=== PATIENT | female | born 1980 | race Caucasian/White ===

== ENCOUNTER 2017-10-05 18:46 | Inpatient (IN) | payer OTHER ==
[~2017-10-05] VITALS: Ht 154.9 cm; Wt 68.6 kg
[~2017-10-05 18:46] MED LIST: FERR324T6 PO; PRENAT PO
[2017-10-05] MEDS ORDERED: SODIUM CHLORIDE 0.9% 1L BAG IV* STA (19:23)
[2017-10-05] MEDS ORDERED: PIPER-TAZO 3.375 GM IV (PMX) 50 ML IVPB STA (19:23)
[2017-10-05] MEDS ORDERED: DOXYCYCLINE 100 MG in SOD CHLORIDE 0.9% 250 ML IVPB SCH (19:30)
[2017-10-05 19:48] LABS: BASOPHILS % 0.2 % (0.0-2.0); EOSINOPHILS % 0.1 % (0.0-7.0); HEMATOCRIT 34.1 % (37.0-47.0); HEMOGLOBIN 10.8 g/dl (12.0-16.0); LYMPHOCYTES # 0.8 10^3/ul (0.8-2.9); LYMPHOCYTES % 6.1 % (15.0-51.0); MEAN CORPUSCULAR HEMOGLOBIN 23.7 pg (29.0-33.0); MEAN CORPUSCULAR HGB CONC 31.7 g/dl (32.0-37.0); MEAN CORPUSCULAR VOLUME 74.8 fl (82.0-101.0); MEAN PLATELET VOLUME 9.4 fl (7.4-10.4); MONOCYTE # 0.4 10^3/ul (0.3-0.9); MONOCYTES % 3.2 % (0.0-11.0); NEUTROPHIL # 11.4 10^3/ul (1.6-7.5); PLATELET COUNT 381 10^3/UL (140-415); RED BLOOD COUNT 4.56 10^6/ul (4.20-5.40); RED CELL DISTRIBUTION WIDTH 16.5 % (11.5-14.5); WHITE BLOOD COUNT 12.6 10^3/ul (4.8-10.8)
[2017-10-05] MEDS ORDERED: HYDROmorphONE 0.5 MG/0.5 ML SYG IV STA (19:56)
[2017-10-05] MEDS ORDERED: ONDANSETRON 4 MG INJ IV STA (19:56)
[2017-10-05 20:06] LABS: ALBUMIN 3.8 g/dl (3.3-4.9); ALBUMIN/GLOBULIN RATIO 1.05; BILIRUBIN,INDIRECT 0.7 mg/dl (0-1.1); BILIRUBIN,TOTAL 0.7 mg/dl (0.2-1.3); CREATININE 0.69 mg/dl (0.44-1.00); TOTAL PROTEIN 7.4 g/dl (6.1-8.1)
[2017-10-05 20:13] LABS: ADD UMIC YES; UR ASCORBIC ACID NEGATIVE (NEGATIVE); UR BILIRUBIN (Dip) NEGATIVE (NEGATIVE); UR BLOOD (Dip) NEGATIVE (NEGATIVE); UR CLARITY CLEAR (CLEAR); UR COLOR AMBER (YELLOW); UR GLUCOSE (Dip) NEGATIVE (NEGATIVE); UR KETONES (Dip) NEGATIVE (NEGATIVE); UR LEUKOCYTE ESTERASE (Dip) 1+ Leu/ul (NEGATIVE); UR MUCUS MANY /HPF (NONE SEEN); UR NITRITE (Dip) NEGATIVE (NEGATIVE); UR RBC 2 /HPF (0-5); UR SPECIFIC GRAVITY (Dip) 1.028 (1.003-1.030); UR TOTAL PROTEIN (Dip) 1+ mg/dl (NEGATIVE); UR UROBILINOGEN (Dip) 1+ mg/dL (NEGATIVE)
--- NOTE | 2017-10-05 20:32 | RADRPT ---
PROCEDURE: Pelvic ultrasound. CLINICAL INDICATION: Pelvic pain, recent spontaneous TECHNIQUE: English scale, color doppler, spectral doppler ultrasound of the pelvis was performed with transabdominal and transvaginal transducers. COMPARISON: US OB 08/02/2015 FINDINGS: Uterus: Position: Anteverted. Normal myometrial echogenicity. Normal appearance of the endometrium. Ovaries: Normal appearing right ovary. Normal appearing left ovary. No adnexal masses. Free fluid: Mild - moderate amount of complex fluid is present. Measurements: Endometrium (cm): 0.5 Uterus (cm): 9.6 x 5.4 x 6.7 Right ovary (cm): 2.2 x 1.4 x 1.7 Left ovary (cm): 2.1 x 1.2 x 1.4 IMPRESSION: Normal appearance of the uterus, endometrium, and both ovaries. Mild - moderate complex free fluid in the pelvis. RPTAT: AADD .Daniel Jarrett MD, MD Date Time Electronically viewed and signed by .Daniel Jarrett MD, on 10/05/2017 20:32 .B/
[2017-10-05] MEDS ORDERED: ONDANSETRON 4 MG INJ IV PRN (22:30)
[2017-10-05] MEDS ORDERED: ACETAMINOPHEN 325 MG TAB PO PRN (22:30)
--- NOTE | 2017-10-05 22:55 | ERD ---
ER Documentation Chief Complaint Chief Complaint BIBA [id number],vag bleed,,hx miscarriage 09/26/17,c/o lower abd pain HPI 37-year-old homeless female SAb1 presenting to the ER complaining of suprapubic pain and vaginal bleeding. She states that her last menstrual period was August 17. She was a few weeks and went to [facility] on September 26 for vaginal bleeding and abdominal cramping. She was told she was having a miscarriage. She was sent home and told to follow-up. Her abdominal pain resolved but her bleeding never resolved. Yesterday night she started feeling abdominal cramping again with vaginal bleeding she is using about 3 pads a day. She denies any associated fevers. Her pain is constant, 10 out of 10, worse with any type of movement. She denies any nausea, vomiting , diarrhea, chest pain. ROS All systems reviewed and are negative except as per history of present illness. Medications Home Meds Discontinued Reported Medications Ferrous Sulfate (Ferrous Sulfate) 324 Mg Tabsr, 324 MG PO 07/28/15 Multivit/Min/Fol Ac/Iron/Pren* ( S*) 1 Tab Tab, 1 TAB PO DAILY, TAB 07/28/15 Allergies Allergies: Coded Allergies: No Known Allergy (Unverified , 10/05/17) PMhx/Soc History of Surgery: Yes () Anesthesia Reaction: No Hx Respiratory Disorders: No Hx Cardiac Disorders: No Hx Psychiatric Problems: No Hx Alcohol Use: No Hx Substance Use: No Hx Tobacco Use: No Smoking Status: Current some day smoker FmHx Family History: No diabetes Physical Exam Vitals Vital Signs Date Time Temp Pulse Resp B/P Pulse Ox O2 Delivery O2 Flow Rate FiO2 10/05/17 22:57 94 18 107/57 99 Room Air 10/05/17 22:19 96 18 115/54 100 Room Air 10/05/17 21:22 96 16 107/58 98 Room Air 10/05/17 20:09 94 18 113/55 99 10/05/17 18:52 98.6 111 18 110/55 100 Physical Exam Const: Nontoxic, in distress secondary to pain, writhing around in bed, sickly appearing Head: Atraumatic Eyes: Normal Conjunctiva ENT: Dry oral mucosa Neck: Full range of motion..~ No meningismus. Resp: Clear to auscultation bilaterally Cardio: Tachycardic with regular rhythm, no murmurs Abd: Soft, non distended, significant suprapubic tenderness with no palpable uterus. Normal bowel sounds Skin: No petechiae or rashes Back: No midline or flank tenderness Pelvic Exam: Oil Burner present Abdomen: Tender in the lower abdomen External Genitalia: Normal Speculum: Bloody purulent discharge in the vaginal vault. Unable to visualize cervix. Bimanual: Positive CMT, no masses, positive uterine tenderness. Unable to palpate cervical os Ext: No cyanosis, or edema Neur: Awake and alert Psych: Normal Mood and Affect Result Diagram: 10/05/17192410/05/171924 Results 24 hrs Laboratory Tests Test 10/05/17 19:25 10/05/17 19:53 10/05/17 22:21 White Blood Count 12.610^3/ul Red Blood Count 4.5610^6/ul Hemoglobin 10.8g/dl Hematocrit 34.1% Mean Corpuscular Volume 74.8fl Mean Corpuscular Hemoglobin 23.7pg Mean Corpuscular Hemoglobin Concent 31.7g/dl Red Cell Distribution Width 16.5% Platelet Count 54924^3/UL Mean Platelet Volume 9.4fl Neutrophils % 90.0% Lymphocytes % 6.1% Monocytes % 3.2% Eosinophils % 0.1% Basophils % 0.2% Nucleated Red Blood Cells % 0.0/100WBC Neutrophils # 11.410^3/ul Lymphocytes # 0.810^3/ul Monocytes # 0.410^3/ul Eosinophils # 0.010^3/ul Basophils # 0.010^3/ul Nucleated Red Blood Cells # 0.010^3/ul Sodium Level 134mmol/L Potassium Level 4.0mmol/L Chloride Level 96mmol/L Carbon Dioxide Level 28mmol/L Anion Gap 14 Blood Urea Nitrogen 14mg/dl Creatinine 0.69mg/dl Glucose Level 127mg/dl Lactic Acid Level 1.0mmol/L 0.9mmol/L Calcium Level 9.0mg/dl Total Bilirubin 0.7mg/dl Direct Bilirubin 0.00mg/dl Indirect Bilirubin 0.7mg/dl Aspartate Amino Transf (AST/SGOT) 21IU/L Alanine Aminotransferase (ALT/SGPT) 33IU/L Alkaline Phosphatase 102IU/L Total Protein 7.4g/dl Albumin 3.8g/dl Globulin 3.60g/dl Albumin/Globulin Ratio 1.05 Serum HCG, Qualitative POSITIVE Beta HCG, Quantitative 78.6mIU/ml Urine Color ALEC Urine Clarity CLEAR Urine pH 5.0 Urine Specific [place] 1.028 Urine Ketones NEGATIVEmg/dL Urine Nitrite NEGATIVEmg/dL Urine Bilirubin NEGATIVEmg/dL Urine Urobilinogen 1+mg/dL Urine Leukocyte Esterase 1+Dax/ul Urine Microscopic RBC 2/HPF Urine Microscopic WBC 9/HPF Urine Mucus MANY/HPF Urine Hemoglobin NEGATIVEmg/dL Urine Glucose NEGATIVEmg/dL Urine Total Protein 1+mg/dl Current Medications Medications (Trade) Dose Ordered Sig/Milagros Route PRN Reason Start Time Stop Time Status Last Admin Dose Admin Sodium Chloride 2110 ml 2,110 ml BOLUS OVER 2 HOURS STAT IV* 10/05/17 19:23 10/05/17 19:29 DC 10/05/17 19:38 Piperacillin Sod/ Tazobactam Sod 50 ml @ 100 mls/hr ONCE STAT IVPB 10/05/17 19:23 10/05/17 19:52 DC 10/05/17 19:52 Doxycycline Hyclate/Sodium Chloride (Vibramycin/NS) 250 ml @ 250 mls/hr ONCE IVPB 10/05/17 19:30 10/05/17 19:30 Hydromorphone HCl (Dilaudid) 0.5 mg ONCE STAT IV 10/05/17 19:56 10/05/17 19:58 DC 10/05/17 20:04 Ondansetron HCl (Zofran Inj) 4 mg ONCE STAT IV 10/05/17 19:56 10/05/17 19:58 DC 10/05/17 20:04 Ondansetron HCl (Zofran Inj) 4 mg BRIDGE ORDER PRN IV NAUSEA AND/OR VOMITING 10/05/17 22:30 10/06/17 22:29 Acetaminophen (Tylenol Tab) 650 mg ER BRIDGE PRN PO MILD PAIN/FEVER 10/05/17 22:30 10/06/17 22:29 Procedures/MDM Labs: CBC: leukocytosis with left shift, mild anemia CMP: No evidence of electrolyte abnormality, renal failure, hypoglycemia, liver failure, or biliary obstruction Lactate within normal limits UA: 1+ leukoesterase Imaging: Pelvic ultrasound: IMPRESSION: Normal appearance of the uterus, endometrium, and both ovaries. Mild - moderate complex free fluid in the pelvis. .Daniel Jarrett MD, MD Date Time Electronically viewed and signed by .Daniel Jarrett MD, on 10/05/2017 20:32 MDM Patient is presenting with clinical picture consistent with endometritis/pelvic infection. Sepsis workup was initiated. There is no evidence of septic shock or severe sepsis. Broad-spectrum antibiotics were given. At 30 cc/kg fluid bolus was also given. Pain medications were administered with improvement of her pain. I contacted the hospice music therapy on-call, Dr. Pino, who came to see the patient and examined her herself. She agrees that the patient needs admission for IV antibiotics. At this time there is no signs of ectopic or uterine perforation. The ultrasound did show evidence of free fluid. Dr. Pino is aware of this. She does not think the patient needs to go to the OR at this time. She will admit to her service. Departure Diagnosis: Primary Impression: Endometritis following abortive Additional Impression: Sepsis Sepsis type: sepsis due to unspecified organism Qualified Code: A41.9 - Sepsis, due to unspecified organism Condition: Serious ANDREAS ALVARADO MD Oct 05, 2017 22:55
[2017-10-05 23:55] VITALS: BP 114/55; PULSE 96; RESP 18
[2017-10-06] MEDS: HYDROmorphONE 0.5 MG/0.5 ML SYG IV PRN ×6 (00:10→23:57)
[2017-10-06 00:54] VITALS: BP 109/65; RESP 20
[2017-10-06] MEDS: PIPER-TAZO 3.375 GM IV (PMX) 50 ML IVPB SCH ×5 (02:09→23:57)
--- NOTE | 2017-10-06 02:27 | CONS ---
Date/Time of Note Date/Time of Note DATE: 10/06/17 TIME: 01:44 Assessment/Plan Assessment/Plan Additional Assessment/Plan s/p miscarriage early , PID less likely pelvic pain , vaginal bleeding, cannot exclude ectopic plan get medical record from [facility] keep NPO review u/s radiologist in am Consultation Date/Type/Reason Admit Date/Time Oct 05, 2017 at 22:32 Date of Consultation: Oct 06, 2017 Reason for Consultation pelvic pain vaginal bleeding Referring Provider: ANDREAS ALVARADO MD Hx of Present Illness 37y.o (sab3 iab) presented to ER with c/o pelvic pain and vaginal bleeding for the last 2days. her LMP was 08/17 and found to be ,but she started having lower abdominal cramping pain with vaginal bleeding which led her to visit [facility] where she was told having miscarriageand sent home on september 26/2017 presently no medical record available whether they confirmed IUP or not at that time . according to patient symptoms alleviated for few days and restarted pelvic pain and vaginal bleeding which is heavy. pain is aggrevated with motion even radiated to upper abdomen.denies any other subjective symptoms., U/s today revealed no abnormal finding except mild to moderate free fluid in the culde sac which is complex,poss blood/abscess HCG 76, cannot exclude ectopic prenancy even though [facility] told her she was miscarring . patient was admitted for observation ,review the u/s film with radiologist in am ,keep patient NPO,and repeat lab all within nl except above mentioned in HPI Constitutional: improved, no complaints Eyes: no complaints ENT: no complaints Respiratory: no complaints Cardiovascular: no complaints Gastrointestinal: no complaints, pain Genitourinary: bleeding Musculoskeletal: no complaints Skin: no complaints Neurologic: no complaints Endocrine: polyuria Lymphatic: no complaints Psychological: no complaints Immunologic: no complaints Past Medical History Medical History: no pertinent history Past Surgical History had x4 C/S x3 SAB x1IAB Past Surgical Hx: other (c/s IAB) Family History Significant Family History: hypertension (m om and dad) Social History Alcohol Use: other Smoking Status: Current some day smoker Drug Use: other (unable to retrieve info) Exam/Review of Systems Vital Signs Vitals Vital Signs Date Time Temp Pulse Resp B/P Pulse Ox O2 Delivery O2 Flow Rate FiO2 10/06/17 00:54 98.6 95 20 109/65 97 10/05/17 22:57 Room Air Intake and Output 10/05/17 10/05/17 10/06/17 15:00 23:00 07:00 Intake Total 2460 ml Balance 2460 ml Exam Constitutional: alert, oriented, well developed Psych: no complaints Head: normocephalic Eyes: nl conjunctiva ENMT: nl external ears & nose Neck: supple Respiratory: clear to auscultation Cardiovascular: regular rate and rhythm Gastrointestinal: rebound or guarding, surgical scars, tender (on lower abdomen ) Genitourinary - Female: uterus (u/s neg) Musculoskeletal: nl extremities to inspection, nl gait and stance Extremities: normal pulses Neurological: BOX PRINTER II-XII intact, nl mental status, nl speech, nl strength Results Result Diagram: 10/05/17192410/05/171924 Results 24 hrs Laboratory Tests Test 10/05/17 19:25 10/05/17 19:53 10/05/17 22:21 White Blood Count 12.6 #H Red Blood Count 4.56 Hemoglobin 10.8 L Hematocrit 34.1 L Mean Corpuscular Volume 74.8 L Mean Corpuscular Hemoglobin 23.7 L Mean Corpuscular Hemoglobin Concent 31.7 L Red Cell Distribution Width 16.5 H Platelet Count 381 Mean Platelet Volume 9.4 Neutrophils % 90.0 H Lymphocytes % 6.1 L Monocytes % 3.2 Eosinophils % 0.1 Basophils % 0.2 Nucleated Red Blood Cells % 0.0 Neutrophils # 11.4 H Lymphocytes # 0.8 Monocytes # 0.4 Eosinophils # 0.0 Basophils # 0.0 Nucleated Red Blood Cells # 0.0 Sodium Level 134 L Potassium Level 4.0 Chloride Level 96 L Carbon Dioxide Level 28 Anion Gap 14 Blood Urea Nitrogen 14 Creatinine 0.69 Glucose Level 127 Lactic Acid Level 1.0 0.9 Calcium Level 9.0 Total Bilirubin 0.7 Direct Bilirubin 0.00 Indirect Bilirubin 0.7 Aspartate Amino Transf (AST/SGOT) 21 Alanine Aminotransferase (ALT/SGPT) 33 Alkaline Phosphatase 102 Total Protein 7.4 Albumin 3.8 Globulin 3.60 H Albumin/Globulin Ratio 1.05 Serum HCG, Qualitative POSITIVE Beta HCG, Quantitative 78.6 Urine Color ALEC Urine Clarity CLEAR Urine pH 5.0 Urine Specific [place] 1.028 Urine Ketones NEGATIVE Urine Nitrite NEGATIVE Urine Bilirubin NEGATIVE Urine Urobilinogen 1+ H Urine Leukocyte Esterase 1+ H Urine Microscopic RBC 2 Urine Microscopic WBC 9 H Urine Mucus MANY A Urine Hemoglobin NEGATIVE Urine Glucose NEGATIVE Urine Total Protein 1+ H Medications Medications Current Medications Doxycycline Hyclate/Sodium Chloride (Vibramycin/NS) 250 ml @ 250 mls/hr ONCE IVPB Last administered on 10/05/17 19:30; Admin Dose 250 MLS/HR; Start 10/05 at 19:30 Hydromorphone HCl 0.5 mg 0.5 mg Q2H PRN IV PAIN Last administered on 00:10; Admin Dose 0.5 MG; Start 10/06/17 at 00:00 Piperacillin Sod/ Tazobactam Sod (Zosyn 3.375gm/ 50 ml (Pmx)) 50 ml @ 100 mls/ hr Q6 IVPB ; Start 10/06/17 at 00:30 BEATA RUELAS MD Oct 06, 2017 02:11
[2017-10-06 02:34] VITALS: Ht 154.9 cm; Wt 68.6 kg
[2017-10-06] MEDS ORDERED: INFLUENZA VIRUS VACCINE 0.5 ML SYG IM* ONE (03:00)
[2017-10-06 05:45] LABS: BASOPHILS % 0.2 % (0.0-2.0); EOSINOPHILS % 0.1 % (0.0-7.0); HEMATOCRIT 33.6 % (37.0-47.0); HEMOGLOBIN 10.5 g/dl (12.0-16.0); LYMPHOCYTES # 0.9 10^3/ul (0.8-2.9); LYMPHOCYTES % 6.1 % (15.0-51.0); MEAN CORPUSCULAR HEMOGLOBIN 23.9 pg (29.0-33.0); MEAN CORPUSCULAR HGB CONC 31.3 g/dl (32.0-37.0); MEAN CORPUSCULAR VOLUME 76.4 fl (82.0-101.0); MEAN PLATELET VOLUME 10.2 fl (7.4-10.4); MONOCYTE # 0.5 10^3/ul (0.3-0.9); MONOCYTES % 3.1 % (0.0-11.0); NEUTROPHIL # 13.7 10^3/ul (1.6-7.5); NEUTROPHILS % 89.9 % (39.0-77.0); PLATELET COUNT 364 10^3/UL (140-415); RED CELL DISTRIBUTION WIDTH 16.5 % (11.5-14.5); WHITE BLOOD COUNT 15.2 10^3/ul (4.8-10.8)
[2017-10-06 07:19] VITALS: BP 109/55; RESP 20
--- NOTE | 2017-10-06 08:09 | QN ---
Documentation Comment review the imaging of u/s with DR hanye FF on culde sac measured arvin 10cc complex possibly blood clot [facility] u/s on september 26 showed IUP GS located on low seg /poss rupture of ovarian cyst? this am HCG 61 from 78.6 H&H stable BEATA RUELAS MD Oct 06, 2017 08:09
[2017-10-06] MEDS ORDERED: INFLUENZA VIRUS VACCINE 0.5 ML (DISPENSING) IM* ONE (09:00)
--- NOTE | 2017-10-06 12:08 | QN ---
Documentation Comment Patient reports pain is controlled with medication. Denies any dizziness, lightheadedness, shortness of breath, chest pain. Ambulated. Urinated. Has appetite to eat. Denies increased vaginal bleeding. general appearance: A&O, Appears to be in mild distress Abdomen: soft, mild tenderness in the lower abdomen, no rebound tenderness, no guarding, no rigidity No evidence of acute abdomen. No CVA tenderness. Extremities: no calf tenderness, no click, no edema Hematology - 72 Hrs Test 10/05/17 19:25 10/06/17 04:21 White Blood Count 12.610^3/ul (4.8-10.8) #H 15.210^3/ul (4.8-10.8) #H Red Blood Count 4.5610^6/ul (4.20-5.40) 4.4010^6/ul (4.20-5.40) Hemoglobin 10.8g/dl (12.0-16.0) L 10.5g/dl (12.0-16.0) L Hematocrit 34.1% (37.0-47.0) L 33.6% (37.0-47.0) L Mean Corpuscular Volume 74.8fl (82.0-101.0) L 76.4fl (82.0-101.0) L Mean Corpuscular Hemoglobin 23.7pg (29.0-33.0) L 23.9pg (29.0-33.0) L Mean Corpuscular Hemoglobin Concent 31.7g/dl (32.0-37.0) L 31.3g/dl (32.0-37.0) L Red Cell Distribution Width 16.5% (11.5-14.5) H 16.5% (11.5-14.5) H Platelet Count 83382^3/UL (140-415) 78139^3/UL (140-415) Mean Platelet Volume 9.4fl (7.4-10.4) 10.2fl (7.4-10.4) Neutrophils % 90.0% (39.0-77.0) H 89.9% (39.0-77.0) H Lymphocytes % 6.1% (15.0-51.0) L 6.1% (15.0-51.0) L Monocytes % 3.2% (0.0-11.0) 3.1% (0.0-11.0) Eosinophils % 0.1% (0.0-7.0) 0.1% (0.0-7.0) Basophils % 0.2% (0.0-2.0) 0.2% (0.0-2.0) Nucleated Red Blood Cells % 0.0/100WBC (0.0-0.0) 0.0/100WBC (0.0-0.0) Neutrophils # 11.410^3/ul (1.6-7.5) H 13.710^3/ul (1.6-7.5) H Lymphocytes # 0.810^3/ul (0.8-2.9) 0.910^3/ul (0.8-2.9) Monocytes # 0.410^3/ul (0.3-0.9) 0.510^3/ul (0.3-0.9) Eosinophils # 0.010^3/ul (0.0-0.5) 0.010^3/ul (0.0-0.5) Basophils # 0.010^3/ul (0.0-0.1) 0.010^3/ul (0.0-0.1) Nucleated Red Blood Cells # 0.010^3/ul (0.0-0.0) 0.010^3/ul (0.0-0.0) Erythrocyte Sedimentation Rate 27mm/Hr (0-20) H Chemistry Test 10/05/17 19:25 10/05/17 22:21 10/06/17 00:22 10/06/17 04:21 Sodium Level 134mmol/L (135-144) L Potassium Level 4.0mmol/L (3.5-5.1) Chloride Level 96mmol/L (97-110) L Carbon Dioxide Level 28mmol/L (21-31) Anion Gap 14 (8-16) Blood Urea Nitrogen 14mg/dl (7-20) Creatinine 0.69mg/dl (0.44-1.00) Glucose Level 127mg/dl (70-220) Lactic Acid Level 1.0mmol/L (0.5-2.0) 0.9mmol/L (0.5-2.0) 1.1mmol/L (0.5-2.0) Calcium Level 9.0mg/dl (8.4-10.2) Total Bilirubin 0.7mg/dl (0.2-1.3) Direct Bilirubin 0.00mg/dl (0.00-0.20) Indirect Bilirubin 0.7mg/dl (0-1.1) Aspartate Amino Transf (AST/SGOT) 21IU/L (15-46) Alanine Aminotransferase (ALT/SGPT) 33IU/L (13-69) Alkaline Phosphatase 102IU/L (42-121) Total Protein 7.4g/dl (6.1-8.1) Albumin 3.8g/dl (3.3-4.9) Globulin 3.60g/dl (1.3-3.2) H Albumin/Globulin Ratio 1.05 Serum HCG, Qualitative POSITIVE (NEGATIVE) Beta HCG, Quantitative 78.6mIU/ml 61.1mIU/ml Assessment: Lower abdominaL pain, Low HCG. history of SAB . based on review of the imaging from [facility] SAB. Small FF in the pelvis. can not r/o Hemorrhagic corpus leuteal cyst. 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
[2017-10-06 14:43] VITALS: BP 115/64; RESP 22
[2017-10-06 17:07] LABS: ADD UMIC YES; UR ASCORBIC ACID NEGATIVE (NEGATIVE); UR BILIRUBIN (Dip) NEGATIVE (NEGATIVE); UR BLOOD (Dip) 2+ mg/dL (NEGATIVE); UR CLARITY SLIGHTLY CLOUDY (CLEAR); UR COLOR AMBER (YELLOW); UR GLUCOSE (Dip) NEGATIVE (NEGATIVE); UR KETONES (Dip) NEGATIVE (NEGATIVE); UR LEUKOCYTE ESTERASE (Dip) 3+ Leu/ul (NEGATIVE); UR NITRITE (Dip) NEGATIVE (NEGATIVE); UR RBC 6 /HPF (0-5); UR SPECIFIC GRAVITY (Dip) 1.029 (1.003-1.030); UR SQUAMOUS EPITHELIAL CELL FEW /HPF (FEW); UR TOTAL PROTEIN (Dip) 1+ mg/dl (NEGATIVE); UR UROBILINOGEN (Dip) NEGATIVE (NEGATIVE)
[2017-10-06 20:00] VITALS: BP 109/60; RESP 18
[2017-10-06 20:11] LABS: BASOPHILS % 0.2 % (0.0-2.0); EOSINOPHILS % 0.1 % (0.0-7.0); HEMATOCRIT 33.2 % (37.0-47.0); HEMOGLOBIN 10.7 g/dl (12.0-16.0); LYMPHOCYTES # 1.2 10^3/ul (0.8-2.9); LYMPHOCYTES % 6.5 % (15.0-51.0); MEAN CORPUSCULAR HGB CONC 32.2 g/dl (32.0-37.0); MEAN CORPUSCULAR VOLUME 74.6 fl (82.0-101.0); MEAN PLATELET VOLUME 9.4 fl (7.4-10.4); MONOCYTE # 0.7 10^3/ul (0.3-0.9); MONOCYTES % 3.9 % (0.0-11.0); NEUTROPHIL # 16.7 10^3/ul (1.6-7.5); NEUTROPHILS % 88.4 % (39.0-77.0); PLATELET COUNT 356 10^3/UL (140-415); RED BLOOD COUNT 4.45 10^6/ul (4.20-5.40); RED CELL DISTRIBUTION WIDTH 16.6 % (11.5-14.5); WHITE BLOOD COUNT 18.9 10^3/ul (4.8-10.8)
[2017-10-07 02:00] VITALS: BP 118/70; RESP 19
[2017-10-07] MEDS: HYDROmorphONE 0.5 MG/0.5 ML SYG IV PRN ×4 (04:19→21:30)
[2017-10-07] MEDS: PIPER-TAZO 3.375 GM IV (PMX) 50 ML IVPB SCH ×4 (05:37→23:41)
[2017-10-07 08:00] VITALS: BP 117/65; RESP 19
[2017-10-07] MEDS: HYDROCODONE/APAP (10/325) TAB PO PRN ×3 (11:32→19:58)
[2017-10-07 15:35] VITALS: BP 121/69; RESP 19
[2017-10-07 20:00] VITALS: BP 107/59; RESP 20
[2017-10-07] MEDS ORDERED: BARIUM SULF 2% 450 ML BTL (BERRY SMOOTHIE) PO ONE (21:30)
[2017-10-08 00:08] VITALS: BP 113/56; RESP 20
[2017-10-08] MEDS: HYDROmorphONE 0.5 MG/0.5 ML SYG IV PRN ×4 (02:29→19:55)
[2017-10-08] MEDS ORDERED: KETOROLAC 30 MG INJ IV ONE (04:05)
[2017-10-08] MEDS: AL HYDROX/MG HYDROX/SIMETH 30 ML CUP PO ONE ×2 (04:34→08:00)
[2017-10-08] MEDS: PANTOPRAZOLE 40 MG INJ IV SCH ×2 (04:34→06:36)
--- NOTE | 2017-10-08 04:35 | CONS ---
Date/Time of Note Date/Time of Note DATE: 10/08/17 TIME: 04:02 Assessment/Plan Assessment/Plan Chief Complaint/Hosp Course #1 abdominal pain: endometritis vs. pelvic etiology and/or uti vs. GI tract etiology: Her WBC continues to rise and on exam she has diffuse abdominal pain which is most pronounced at the area around and above the umbilicus, she also has pain at the lower abdominal quadrants. I agree with current management as per solid waste analyst of obtaining a CT scan of the abdomen/pelvis, this was already ordered. She is on zosyn for her UTI which also is good coverage at this time for possible intra-abdominal infections until we get the results of the CT scan. Along with the abdominal pain, she also has hypoactive bowel sounds, so I will order an abdominal xray at this time to rule out any bowel obstruction or ileus and based on the findings I may request the ct scan to be done sooner. She was also complaining of pain along the substernal chest and throat area and has experienced heart burn before, so I will start her on protonix iv daily and give her a one time dose of mylanta. Will check a lipase level. Patient denies any recent heavy alcohol use, aside from taking a few sips of alcohol from a friend. Will check ethanol level too and UDS. Check CMP, Lactic acid and lipase. #2 demise: based on review of the chart it was also noted that patient was diagnosed with demise at [facility]. her current beta hcg level is dropping. Aside from pelvic fluid, the rest of her pelvic US was relatively normal. Continue management as per OB and #1. #3 Hx of meth use: check UDS. #4 UTI: continue zosyn. Await urine culture results. Thank you for this consultation, we will follow with you. Problems: Consultation Date/Type/Reason Admit Date/Time Oct 05, 2017 at 22:32 Reason for Consultation abdominal pain Hx of Present Illness This is a 37-year-old 37y.o who presented presented to ER with c/o pelvic pain and vaginal bleeding for the last 2days. her LMP was 08/17 and found to be ,but she started having lower abdominal cramping pain with vaginal bleeding which led her to visit [facility] where she was told she had demise on ultrasound is no heart rate was observed and having a miscarriage and was sent home on september 26/2017. According to patient symptoms alleviated for few days and restarted pelvic pain and vaginal bleeding which is heavy. U/s on 10/05 revealed no abnormal finding except mild to moderate free fluid in the culde sac which is complex,poss blood/abscess. There is also concern for ectopic which will be was also concerned. Her beta-hCG was continuing to trend down. Upon my examination of the patient the patient continues to have Upon my examination the patient continues to have diffuse abdominal pain greater above the umbilicus and of the lower abdominal quadrants. She last had a bowel movement on the that she states. She does state that she also is having some burning sensation of the substernal chest and throat area especially after I palpate her abdomen. She states she does use meth however she is not heavy alcohol drinker but she did have a drink before she was admitted. She denies any hematochezia or hematemesis. Current time she denies any vaginal bleeding. Allergies: NKDA Medications: None Const: As per HPI Eyes : No pain discharge or redness or change in visual acuity ENT: No pain, sore throat, congestion, congestion, dysphagia or discharge Respiratory: No shortness of breath, cough, sputum, wheezing, or pleuritic pain Cardiovascular: No chest pain, palpitation, PND, or edema GI : As per HPI Genitourinary: As per HPI Musculoskeletal: No joint pain, back pain, neck pain, restricted range of motion in neck or joints Skin: No rash, bruising or hives Neuro: No headache, dizziness, syncope, seizure, focal weakness Endocrine: No polyuria, polydipsia, temperature intolerance Psych: No hallucination, depression, anxiety or suicidal ideation Past Medical History , gestational DM Past Surgical History x 4, Past Surgical Hx: other (c/s IAB) Social History Alcohol Use: rarely Smoking Status: Never smoker Drug Use: other (recent Methamphetatmine use) Exam/Review of Systems Vital Signs Vitals Vital Signs Date Time Temp Pulse Resp B/P Pulse Ox O2 Delivery O2 Flow Rate FiO2 10/08/17 00:08 99.0 102 20 113/56 93 10/05/17 23:55 Room Air Intake and Output 10/07/17 10/07/17 10/08/17 15:00 23:00 07:00 Intake Total 50 ml 1390 ml Output Total 900 ml Balance 50 ml 490 ml Exam General: Is lying in bed in mild distress from pain HEENT: Atraumatic, normocephalic. The pupils are equal, round and reactive. Extraocular motor are intact, poor dentition Neck: Supple with full range of motion. No rigidity or meningismus Chest: Nontender Lungs: Clear to auscultation bilaterally no crackles rales or wheezing Heart: Normal S1-S2, Regular rhythm and rate. No overt murmurs appreciated Abdomen: Soft, diffusely tender abdomen greater at the lower quadrants as well as above the umbilicus, hypoactive bowel sounds Extremities: Normal to inspection, no edema no cyanosis Neurologic: Normal mental status, speech normal, cranial nerves II through XII are intact, motor and sensory are intact, no focal weakness Additional Comments PROCEDURE: Pelvic ultrasound. CLINICAL INDICATION: Pelvic pain, recent spontaneous TECHNIQUE: English scale, color doppler, spectral doppler ultrasound of the pelvis was performed with transabdominal and transvaginal transducers. COMPARISON: US OB 08/02/2015 FINDINGS: Uterus: Position: Anteverted. Normal myometrial echogenicity. Normal appearance of the endometrium. Ovaries: Normal appearing right ovary. Normal appearing left ovary. No adnexal masses. Free fluid: Mild - moderate amount of complex fluid is present. Measurements: Endometrium (cm): 0.5 Uterus (cm): 9.6 x 5.4 x 6.7 Right ovary (cm): 2.2 x 1.4 x 1.7 Left ovary (cm): 2.1 x 1.2 x 1.4 IMPRESSION: Normal appearance of the uterus, endometrium, and both ovaries. Mild - moderate complex free fluid in the pelvis. RPTAT: AADD .Daniel Jarrett MD, Date Time Electronically viewed and signed by .Daniel Jarrett MD, on 10/05/2017 20:32 .B/ CC: ANDREAS ALVARADO MD Results Result Diagram: 10/06/17195210/05/171924 Medications Medications Current Medications Piperacillin Sod/ Tazobactam Sod (Zosyn 3.375gm/ 50 ml (Pmx)) 50 ml @ 100 mls/ hr Q6 IVPB Last administered on 10/07/17 23:41; Admin Dose 100 MLS/HR; Start 10/06/17 at 00:30 Hydromorphone HCl (Dilaudid) 0.5 mg Q3H PRN IV PAIN Last administered on 02:29; Admin Dose 0.5 MG; Start 10/06/17 at 18:00 Acetaminophen/ Hydrocodone Bitart ([place] ()) 1 tab Q4H PRN PO PAIN Last administered on 10/07/17 19:58; Admin Dose 1 TAB; Start 10/06/17 at 15:30 LEONILA TIERNEY Oct 08, 2017 04:24
[2017-10-08 05:17] LABS: BASOPHILS % 0.1 % (0.0-2.0); EOSINOPHILS # 0.1 10^3/ul (0.0-0.5); EOSINOPHILS % 1.2 % (0.0-7.0); HEMATOCRIT 30.7 % (37.0-47.0); HEMOGLOBIN 9.7 g/dl (12.0-16.0); LYMPHOCYTES # 0.8 10^3/ul (0.8-2.9); LYMPHOCYTES % 8.1 % (15.0-51.0); MEAN CORPUSCULAR HEMOGLOBIN 23.6 pg (29.0-33.0); MEAN CORPUSCULAR HGB CONC 31.6 g/dl (32.0-37.0); MEAN CORPUSCULAR VOLUME 74.7 fl (82.0-101.0); MEAN PLATELET VOLUME 9.4 fl (7.4-10.4); MONOCYTE # 0.6 10^3/ul (0.3-0.9); MONOCYTES % 5.9 % (0.0-11.0); NEUTROPHIL # 8.8 10^3/ul (1.6-7.5); NEUTROPHILS % 84.1 % (39.0-77.0); PLATELET COUNT 369 10^3/UL (140-415); RED BLOOD COUNT 4.11 10^6/ul (4.20-5.40); WHITE BLOOD COUNT 10.4 10^3/ul (4.8-10.8)
[2017-10-08 05:31] LABS: ALANINE AMINOTRANSFERASE 27 IU/L (13-69); ALBUMIN 2.8 g/dl (3.3-4.9); ALBUMIN/GLOBULIN RATIO 0.84; ALKALINE PHOSPHATASE 90 IU/L (42-121); ANION GAP 12 (8-16); ASPARTATE AMINO TRANSFERASE 21 IU/L (15-46); BILIRUBIN,INDIRECT 0.3 mg/dl (0-1.1); BILIRUBIN,TOTAL 0.3 mg/dl (0.2-1.3); BLOOD UREA NITROGEN 10 mg/dl (7-20); CALCIUM 8.1 mg/dl (8.4-10.2); CARBON DIOXIDE 32 mmol/L (21-31); CHLORIDE 95 mmol/L (97-110); CREATININE 0.58 mg/dl (0.44-1.00); GLUCOSE 117 mg/dl (70-220); POTASSIUM 3.5 mmol/L (3.5-5.1); SODIUM 135 mmol/L (135-144); TOTAL PROTEIN 6.1 g/dl (6.1-8.1)
[2017-10-08 05:37] LABS: ETHANOL < 10.0 mg/dl
[2017-10-08] MEDS: PIPER-TAZO 3.375 GM IV (PMX) 50 ML IVPB SCH ×3 (06:33→17:33)
[2017-10-08 07:43] VITALS: BP 118/72; RESP 19
--- NOTE | 2017-10-08 07:57 | RADRPT ---
PROCEDURE: XR Chest. CLINICAL INDICATION: Chest pain TECHNIQUE: Single portable view of the chest was obtained. COMPARISON: 10/25/2014 FINDINGS: Cardiac/vascular structures: Normal cardiomediastinal silhouette. Pulmonary: Low lung volumes with bilateral basilar air space opacities. No pleural effusion. No carlos dence of pneumothorax. Osseous structures: Normal Soft tissues: Normal IMPRESSION: Low lung volumes with bilateral basilar airspace opacities may represent atelectasis or pneumonia. RPTAT:AAJJ Sarkis Small Physician Date Time Electronically viewed and signed by Sarkis Small Physician on 10/08/2017 07:57 /
--- NOTE | 2017-10-08 08:00 | RADRPT ---
PROCEDURE: XR Abdomen. CLINICAL INDICATION: Abdominal pain. TECHNIQUE: AP abdomen x-ray. COMPARISON: Chest performed today FINDINGS: Bibasilar air space opacities. Air within the stomach. Multiple dilated loops of small bowel measuri ng up to 5 cm in diameter. Air is present within the colon and rectum. Normal osseous structures. IMPRESSION: 1. Multiple dilated loops of small bowel with air present in the colon representing partial small-channing wel obstruction or ileus. Consider CT abdomen and pelvis to better visualize. 2. Bibasilar air space opacities in the lungs may represent atelectasis or pneumonia. RPTAT:AAJJ Physician Gordon Date Time Electronically viewed and signed by Physician Gordon on 10/08/2017 07:59 /
[2017-10-08] MEDS: NS + KCL 20 MEQ 1,000 ML IV SCH ×2 (10:11→19:55)
--- NOTE | 2017-10-08 10:33 | RADRPT ---
PROCEDURE: CT ABDOMEN AND PELVIS WITHOUT CONTRAST. CLINICAL INDICATION: Abdominal pain and inflammation. TECHNIQUE: CT scan of the abdomen and pelvis without contrast was performed on a multidetector hig h-resolution CT scanner. The patient was scanned without intravenous contrast. Coronal and sagittal reformatted images were obtained from the axial source images. Images were reviewed on a high-resol [employer] PACS workstation. The total exam CTDI equals 16.5 mGy and the total exam DLP equals 1000 mGy-c m. One or more of the following dose reduction techniques were used: Automated exposure control. Adjustment of the mA and/or kV according to patient size. Use of iterative reconstruction technique. DICOM images are available COMPARISON: Ultrasound dated October 05, 2017. FINDINGS: CT abdomen: Bilateral lower lobe atelectasis and small right pleural effusion. The heart size is within normal l imits. Nodular appearance of the borders liver is identified. There is mild perihepatic fluid. Gallbladder is contracted. No evidence of intrahepatic or extrahepatic biliary dilatation. The spleen and pancreas are within normal limits. Both adrenal glands are within normal limits. Both kidneys are and normal anatomic position. No gross renal/ureteric calculi. No evidence of obstr uction or hydronephrosis. The visualized GI tract demonstrates stool filled loops of large bowel. There are multiple loops of dilated small bowel as well as fluid-filled distended stomach, containing a majority of contrast mat erial. The appendix is fluid-filled and dilated. There is a distal stone measuring 2.5 mm. Large tiffany unt of adjacent soft tissue swelling is noted. There is also an area of surrounding phlegmon and gilberto e air adjacent to the distal appendix, concerning for perforation and phlegmon. The unenhanced aorta is unremarkable. There is no significant retroperitoneal lymphadenopathy. CT pelvis: The bladder is within limits. Free fluid is noted within the pelvis. The uterus is identified, conta ining fluid within the endometrial canal and small amount of hemorrhage. Fluid is noted within the p elvic cul-de-sac. The visualized osseous structures, appears to within normal limits. IMPRESSION: 1. FINDINGS DESCRIBED ABOVE ARE HIGHLY CONCERNING FOR PERFORATED ACUTE APPENDICITIS. There is phl egmon and foci of air adjacent to the tip of the appendix. Surrounding large amount of inflammatory changes and fluid is noted. 2. Multiple loops of dilated small bowel and fluid-filled distended stomach, likely reactive ileus a nd gastroparesis. There is inflammation of the adjacent terminal ileum. Free fluid is noted within t he pelvis. 3. Fluid and small amount of hemorrhage is noted within the endometrial canal probably related to hi story of possible spontaneous . Critical findings were discussed with Floor nurse Jorge who will discuss with the hospitalist @ 1 0:30 AM on 10/08/17 RPTAT: AAPP Physician Emma Date Time Electronically viewed and signed by Janny Sun Physician on 10/08/2017 10:33 GEETHA/
--- NOTE | 2017-10-08 10:38 | QN ---
Documentation Comment The nurse called informing that the patient has a perforated appendix. This was reported to the surgeon electronic technician on the ED panel Dr.Pouya Thao @ . As per the conversation with Dr. Thao, he is only taking calls for emergency room patients and he will inform me about further procedures including which surgeon can take care of this patient. The surgeon later called back and said he will not be able to take care of inpatient surgical cases. I made a call to a different surgeon and asked for a favor to see this patient. However, this surgeon said that he will not be able to see the patient. Therefore, I went to the hospital administration and informed the administration about the dilemma. After the hospital administration talked to the surgeon, Dr. Thao accepted the patient. Case discussed with Dr. Solorzano. АННА SALEH NP Oct 08, 2017 10:38
[2017-10-08 12:13] LABS: INR 1.09; PROTIME 14.2 Sec (11.9-14.9); PT RATIO 1.1
[2017-10-08 12:14] LABS: PARTIAL THROMBOPLASTIN TIME 36.7 Sec (25.0-35.0)
[2017-10-08 15:03] VITALS: BP 118/69; RESP 19
--- NOTE | 2017-10-08 15:04 | QN ---
Documentation Comment Had a conversation with Dr.Pouya Thao, the patient's surgeon. As per the surgeon, the patient has a perforated appendix which needs to be treated with IV antibiotics and the patient is symptomatically better including improved WBC and therefore no surgical intervention is essential at this time. However, the surgeon requested ID consult on this patient. Hence, ID will be consulted. The patient will be resumed on a diet as per the surgeon. Case discussed with Dr. Solorzano. АННА SALEH NP Oct 08, 2017 15:04
--- NOTE | 2017-10-08 15:12 | CONS ---
Date/Time of Note Date/Time of Note DATE: 10/08/17 TIME: 14:52 Assessment/Plan Assessment/Plan Problems: (1) Acute perforated appendicitis Comment: 37F with acute perforated appendicitis. Given recent history of miscarriage followed by improvement and then pain, unsure of actual timeline of when appendicitis first began. Unfortunately at this point it has perforated with based on CT findings has significant surrounding phlegmon. Seems to have small fecolith at tip of appendix and inflammation and phlegmon is near tip. remainder of appendix is okay on CT. Does have some minimal free fluid which would be anticipated with acute inflammatory process. Also noted to have ileus which again could be anticipated given acute inflammatory process in abdomen. Currently is no longer febrile and has been afebrile for >24hrs. leukocytosis as resolved and 10k today when asked patient states that she does feel better today and pain has improved a little. on exam has tenderness but no acute abdomen. Given perforated acute appendicitis with phlegmon and currently improving slowly would not recommend surgical intervention. As she continues to improve will resolve and can consider interval appendectomy as an outpatient. Discussed CT findings with radiologist and no discrete fluid collection or abscess noted so will hold on percutaneous drainage for now. Continue with nonsurgical management of perforated appendicitis with phlegmon Recommend continue IV Abx. consider ID consult to optimize Abx. Will monitor with abdominal exams. Okay for diet given passing flatus and clinically does not have ileus. thank you for this consultation. will follow with recs Consultation Date/Type/Reason Admit Date/Time Oct 05, 2017 at 22:32 Date of Consultation: Oct 08, 2017 Type of Consultation: Surgical Reason for Consultation perforated appendicitis with phlegmon Hx of Present Illness 37 year old female currently being hospitalized for abdominal pain and pelvic pain. As per EMR and patient, she initially began to have some abdominal discomfort around 09/26 in which she went to an outside facility for care. She was diagnosed with a miscarriage and was discharged. Initially felt better after but then began to have worsening pelvic and abdominal pain. She then came to for evaluation and was admitted for work up and management. Was found to be febrile with significant leukocytosis. Ultrasound performed was normal but she continued to have pain so CT scan was ordered. CT demonstrated likely perforated appendicitis with phlegmon. Surgery called to evaluate. When seen at bedside patient gives above history. States that she is still having abdominal pain but improved as compared to yesterday and prior. Pain described as cramping generalized abdominal pain which is 10/10 at max and currently 6/10. No radiation of pain. pain worse with movement and better at rest. Denies associated nausea or emesis. febrile. no chills. passing flatus and tolerating oral diet. ambulatory. Eyes: no complaints ENT: no complaints Respiratory: no complaints Cardiovascular: no complaints Gastrointestinal: flatus, pain Genitourinary: no complaints Musculoskeletal: no complaints Skin: no complaints Neurologic: no complaints Endocrine: no complaints Lymphatic: no complaints Psychological: no complaints Immunologic: no complaints Past Medical History Medical History: no pertinent history Past Surgical History Past Surgical Hx: other (c/s IAB) Family History Significant Family History: no pertinent family hx Social History Alcohol Use: rarely Smoking Status: Never smoker Drug Use: other (recent Methamphetatmine use) Exam/Review of Systems Vital Signs Vitals Vital Signs Date Time Temp Pulse Resp B/P Pulse Ox O2 Delivery O2 Flow Rate FiO2 10/08/17 07:43 98.0 88 19 118/72 98 10/05/17 23:55 Room Air Intake and Output 10/07/17 10/07/17 10/08/17 15:00 23:00 07:00 Intake Total 50 ml 1390 ml 50 ml Output Total 900 ml 500 ml Balance 50 ml 490 ml -450 ml Exam Constitutional: alert, oriented Head: atraumatic, normocephalic Eyes: EOMI, nl conjunctiva, nl lids ENMT: No intubated, No mucosa pink and moist, No nl external ears & nose, No nl lips & teeth, No nl nasal mucosa & septum, No other, No tympanic membranes Neck: No bruits, No jvd, No masses, No non-tender, No nuchal rigidity, No other , No supple, No thyromegaly Respiratory: normal air movement, No clear to auscultation, No congested cough, No crackles/rales, No diminished breath sounds, No intercostal retraction, No labored breathing, No other, No respirations, No tactile fremitus, No wheezing Cardiovascular: nl pulses, regular rate and rhythm Gastrointestinal: bowel sounds, other (soft, non distended, tender but no acute abdomen or overt peritonitis. no masses. obese. exam inconsistent as when distracted is not significantly tender without rebound or guarding. when asked states pain mainly in LUQ but she is unsure because its "in different places" ), soft, tender Musculoskeletal: nl extremities to inspection Extremities: normal pulses Neurological: EQUIPMENT DRIVER II-XII intact Skin: nl turgor Results Result Diagram: 10/08/173 10/08/17 0443 Results 24 hrs Laboratory Tests Test 10/08/17 04:43 10/08/17 11:41 White Blood Count 10.4 # Red Blood Count 4.11 L Hemoglobin 9.7 L Hematocrit 30.7 L Mean Corpuscular Volume 74.7 L Mean Corpuscular Hemoglobin 23.6 L Mean Corpuscular Hemoglobin Concent 31.6 L Red Cell Distribution Width 16.0 H Platelet Count 369 Mean Platelet Volume 9.4 Neutrophils % 84.1 H Lymphocytes % 8.1 L Monocytes % 5.9 Eosinophils % 1.2 Basophils % 0.1 Nucleated Red Blood Cells % 0.0 Neutrophils # 8.8 H Lymphocytes # 0.8 Monocytes # 0.6 Eosinophils # 0.1 Basophils # 0.0 Nucleated Red Blood Cells # 0.0 Sodium Level 135 Potassium Level 3.5 Chloride Level 95 L Carbon Dioxide Level 32 H Anion Gap 12 Blood Urea Nitrogen 10 Creatinine 0.58 Glucose Level 117 Lactic Acid Level 0.9 Calcium Level 8.1 L Total Bilirubin 0.3 Direct Bilirubin 0.00 Indirect Bilirubin 0.3 Aspartate Amino Transf (AST/SGOT) 21 Alanine Aminotransferase (ALT/SGPT) 27 Alkaline Phosphatase 90 Total Protein 6.1 Albumin 2.8 L Globulin 3.30 H Albumin/Globulin Ratio 0.84 Lipase 33 Ethyl Alcohol Level < 10.0 Prothrombin Time 14.2 Prothrombin Time Ratio 1.1 INR International Normalized Ratio 1.09 Activated Partial Thromboplast Time 36.7 H Medications Medications Current Medications Piperacillin Sod/ Tazobactam Sod (Zosyn 3.375gm/ 50 ml (Pmx)) 50 ml @ 100 mls/ hr Q6 IVPB Last administered on 10/08/17 11:21; Admin Dose 100 MLS/HR; Start 10/06/17 at 00:30 Hydromorphone HCl (Dilaudid) 0.5 mg Q3H PRN IV PAIN Last administered on 11:25; Admin Dose 0.5 MG; Start 10/06/17 at 18:00 Acetaminophen/ Hydrocodone Bitart ([place] (10325)) 1 tab Q4H PRN PO PAIN Last administered on 10/07/17 19:58; Admin Dose 1 TAB; Start 10/06/17 at 15:30 Pantoprazole 40 mg 40 mg DAILY@06 IV Last administered on 10/08/17 06:36; Admin Dose 40 MG; Start 10/08/17 at 04:00 Potassium Chloride/Sodium Chloride (NS-KCl 20 Meq) 1,000 ml @ 100 mls/hr Q10H IV Last administered on 10/08/17 10:11; Admin Dose 100 MLS/HR; Start 10/08/17 at 09:00 MARILUZ THURSTON MD Oct 08, 2017 15:02
[2017-10-08 19:45] VITALS: BP 114/56; RESP 20
[2017-10-08] MEDS ORDERED: LORAZEPAM 2 MG INJ IV ONE (21:00)
[2017-10-08 23:13] LABS: CANNABINOIDS Negative (NEGATIVE)
[2017-10-08 23:19] LABS: BARBITURATES Negative (NEGATIVE); BENZODIAZEPINES Negative (NEGATIVE); COCAINE Negative (NEGATIVE); OPIATES Positive (NEGATIVE)
[2017-10-09] MEDS: HYDROCODONE/APAP (10/325) TAB PO PRN ×5 (01:00→23:56)
[2017-10-09] MEDS: PIPER-TAZO 3.375 GM IV (PMX) 50 ML IVPB SCH ×5 (01:00→23:56)
[2017-10-09 02:00] VITALS: BP 109/54; PULSE 92; RESP 17
--- NOTE | 2017-10-09 03:00 | CONS ---
DATE OF ADMISSION: 10/05/2017 DATE OF CONSULTATION: 10/08/2017 TYPE OF CONSULTATION: Infectious Disease. REASON FOR CONSULTATION: Antibiotic management. HISTORY OF PRESENT ILLNESS: Nishi Tapia is a 37-year-old homeless female who presented to the ER c omplaining of pelvic pain and vaginal pain for the last few days. Her last menstrual period was 08/2017. According to the patient, she was , but then was told by [facility] that she had a miscarriage and sent home on 09/26/2017. She then developed pain around the time of Thanksgiv ing, the , and she continued to have abdominal pain. She has a history of 4 C-sections, 3 spont aneous abortions, another , actually she had multiple abortions. On admission, her white co unt was 12.6, today it is 10.4, H and H 9.7 and 30.7, platelet count 369,000. BUN and creatinine ar e 10/0.58. Urine 3+ leukocyte esterase, 49 white cells per high powered field. A serology for chla mydia is negative, gonorrhea is negative. She has group B strep in her vagina, but her urine and bl ood cultures are all negative. A pelvic ultrasound shows normal appearance of the uterus, endometri um and both ovaries, mild to moderate complex free fluid in the pelvis. A chest x-ray shows low dariel g volumes with bilateral basilar airspace opacities which may represent atelectasis or pneumonia. A bdominal x-ray, multiple dilated loops of small bowel with air present in the colon representing par tial small-bowel obstruction or ileus, bibasilar airspace opacities in the lung, may represent atele ctasis or pneumonia. A CT scan of the abdomen and pelvis shows findings consistent with perforated acute appendicitis. There is phlegmon and foci of air adjacent to the tip of the appendix, surroundi ng large amount of inflammatory changes and fluid noted, multiple loops of dilated small bowel and f luid-filled distended stomach, likely reactive ileus and gastroparesis. There is free fluid noted, f luid and small amount of hemorrhage is noted, small amount of hemorrhage is noted within the endomet rial canal, probably related to history of possible spontaneous . The patient is currently on Zosyn. PAST MEDICAL HISTORY: Operations as outlined. FAMILY HISTORY: Noncontributory. SOCIAL HISTORY: She does not smoke, drink or abuse drugs. ALLERGIES: NONE TO PENICILLIN, SULFA OR FOODS. MEDICATIONS: Per chart. REVIEW OF SYSTEMS: As per HPI. PHYSICAL EXAMINATION: GENERAL: The patient is a well-developed, somewhat obese female who is alert, responsive, in no acu te distress. VITAL SIGNS: Stable. She is afebrile. SKIN: Without generalized rash. HEENT: Within normal limits. NECK: Supple. LYMPH NODES: None palpable. CHEST: Decreased breath sounds at the bases. HEART: Without murmur or gallop. ABDOMEN: Soft, nontender, without organosplenomegaly or masses. EXTREMITIES: Without cyanosis, clubbing, or edema. RECTAL AND GENITAL: Deferred. NEUROLOGIC: No focal neurological abnormalities. IMPRESSION AND PLAN: The patient appears to have a perforated appendix, although on clinical examin ation she has no pain, although she has received pain medicine which may have masked the pain that s he has. She is continuing on Zosyn, will continue her on this current regimen. The surgeon who eval uated her does not recommend surgical intervention. We can consider interval appendectomy as an out patient. No discrete fluid collection or abscess noted, so will hold on percutaneous drainage for n ow. I will dictate my findings to the hospitalist and to Dr. Darnell Pino and Dictated By: JORGE ZIEGLER MD, JD/GERMAINE Conf#: [id number] DID#: [id number] CC: DARNELL PINO MD; HECTOR GARDINER MD;*[facility]*
[2017-10-09] MEDS: HYDROmorphONE 0.5 MG/0.5 ML SYG IV PRN ×4 (04:45→19:58)
[2017-10-09] MEDS: NS + KCL 20 MEQ 1,000 ML IV SCH ×2 (05:00→09:01)
[2017-10-09 05:22] LABS: BASOPHILS % 0.1 % (0.0-2.0); EOSINOPHILS # 0.1 10^3/ul (0.0-0.5); EOSINOPHILS % 1.6 % (0.0-7.0); HEMATOCRIT 25.4 % (37.0-47.0); HEMOGLOBIN 8.1 g/dl (12.0-16.0); LYMPHOCYTES # 0.6 10^3/ul (0.8-2.9); MEAN CORPUSCULAR HEMOGLOBIN 23.6 pg (29.0-33.0); MEAN CORPUSCULAR HGB CONC 31.9 g/dl (32.0-37.0); MEAN CORPUSCULAR VOLUME 74.1 fl (82.0-101.0); MONOCYTE # 0.6 10^3/ul (0.3-0.9); MONOCYTES % 6.6 % (0.0-11.0); NEUTROPHIL # 7.6 10^3/ul (1.6-7.5); NEUTROPHILS % 84.3 % (39.0-77.0); PLATELET COUNT 341 10^3/UL (140-415); RED BLOOD COUNT 3.43 10^6/ul (4.20-5.40); RED CELL DISTRIBUTION WIDTH 16.2 % (11.5-14.5)
[2017-10-09] MEDS: PANTOPRAZOLE 40 MG INJ IV SCH (05:42)
[2017-10-09 06:06] LABS: ALBUMIN 2.6 g/dl (3.3-4.9); ALBUMIN/GLOBULIN RATIO 0.72; BILIRUBIN,INDIRECT 0.4 mg/dl (0-1.1); BILIRUBIN,TOTAL 0.4 mg/dl (0.2-1.3); CALCIUM 7.9 mg/dl (8.4-10.2); CREATININE 0.53 mg/dl (0.44-1.00); POTASSIUM 3.7 mmol/L (3.5-5.1); TOTAL PROTEIN 6.2 g/dl (6.1-8.1)
[2017-10-09 06:20] LABS: MAGNESIUM 1.8 mg/dl (1.7-2.5)
[2017-10-09 08:00] VITALS: BP 129/66; RESP 19
--- NOTE | 2017-10-09 13:02 | PN ---
Date/Time of Note Date/Time of Note DATE: 10/09/17 TIME: 12:59 Assessment/Plan VTE Prophylaxis VTE Prophylaxis Intervention: SCD's Lines/Catheters [facility]from [facility] Peripheral IV Urinary Cath still in place: No Assessment/Plan Chief Complaint/Hosp Course 1. Acute perforated appendicitis -No surgical intervention as per surgery. -Continue conservative management with antibiotics. -Being followed by infectious diseases. -Continue pain control. 2. Recent miscarriage. -Being followed by [facility]. -Pelvic ultrasound negative for any products of conception. 3. Anemia. -Microcytic and hypochromic. -Obtain an iron panel. 4. Substance abuse. -Cessation advised. 5. Homeless status. -Obtain social work consult. 6. Fluids, electrolytes, and nutrition. -Advance diet to a regular diet. -Stop IV fluids. 7. DVT prophylaxis. -Ambulation. 8. Plan. -Continue antibiotics as per infectious diseases. -Continue pain control. Advance diet. -Await clinical improvement. Case discussed with Dr. Lucio. Case discussed with the surgeon on the case and infectious diseases. Problems: Subjective 24 Hr Interval Summary Free Text/Dictation Complains of abdominal pain. Wants to be discharged. Exam/Review of Systems Vital Signs Vitals Vital Signs Date Time Temp Pulse Resp B/P Pulse Ox O2 Delivery O2 Flow Rate FiO2 10/09/17 08:00 99.0 102 19 129/66 95 10/09/17 02:00 Room Air Intake and Output 10/08/17 10/08/17 10/09/17 15:00 23:00 07:00 Intake Total 50 ml 1610 ml 1270 ml Output Total 800 ml 1250 ml Balance 50 ml 810 ml 20 ml Exam General: Adequately build 37 year-old female lying in bed in no apparent distress. HEENT: Normocephalic, atraumatic. Eyes: Anicteric sclerae, conjunctivae clear. ENT: Nasal septum midline, oral mucosa moist. Neck supple, no JVD noticed. Respiratory: Bilaterally clear breath sounds. No use of accessory muscles of respiration. No adventitious breath sounds. Cardiovascular: S1, S2 heard. No murmurs or gallops. Abdomen: Soft and nondistended. Bowel sounds positive in all 4 quadrants. Diffuse tenderness. Genitourinary: Deferred. Extremities: No cyanosis, no clubbing, no edema. Peripheral pulses palpable. Neurologic: Cranial nerves II through XII grossly intact. The patient is awake, alert, and oriented. Skin: Normal skin turgor. No skin rashes. Results Result Diagram: 10/09/17 0437 10/09/177 Results 24 hrs Laboratory Tests Test 10/08/17 21:20 10/09/17 04:37 Urine Opiates Screen Positive Urine Barbiturates Negative Urine Amphetamines Screen POSITIVE Urine Benzodiazepines Screen Negative Urine Cocaine Screen Negative Urine Cannabinoids Negative White Blood Count 9.0 Red Blood Count 3.43 L Hemoglobin 8.1 L Hematocrit 25.4 L Mean Corpuscular Volume 74.1 L Mean Corpuscular Hemoglobin 23.6 L Mean Corpuscular Hemoglobin Concent 31.9 L Red Cell Distribution Width 16.2 H Platelet Count 341 Mean Platelet Volume 10.0 Neutrophils % 84.3 H Lymphocytes % 7.0 L Monocytes % 6.6 Eosinophils % 1.6 Basophils % 0.1 Nucleated Red Blood Cells % 0.0 Neutrophils # 7.6 H Lymphocytes # 0.6 L Monocytes # 0.6 Eosinophils # 0.1 Basophils # 0.0 Nucleated Red Blood Cells # 0.0 Sodium Level 137 Potassium Level 3.7 Chloride Level 101 Carbon Dioxide Level 29 Anion Gap 11 Blood Urea Nitrogen 6 L Creatinine 0.53 Glucose Level 101 Calcium Level 7.9 L Phosphorus Level 3.0 Magnesium Level 1.8 Total Bilirubin 0.4 Direct Bilirubin 0.00 Indirect Bilirubin 0.4 Aspartate Amino Transf (AST/SGOT) 22 Alanine Aminotransferase (ALT/SGPT) 25 Alkaline Phosphatase 121 Total Protein 6.2 Albumin 2.6 L Globulin 3.60 H Albumin/Globulin Ratio 0.72 Medications Medications Current Medications Piperacillin Sod/ Tazobactam Sod (Zosyn 3.375gm/ 50 ml (Pmx)) 50 ml @ 100 mls/ hr Q6 IVPB Last administered on 10/09/17 11:27; Admin Dose 100 MLS/HR; Start 10/06/17 at 00:30 Hydromorphone HCl (Dilaudid) 0.5 mg Q3H PRN IV PAIN Last administered on 11:24; Admin Dose 0.5 MG; Start 10/06/17 at 18:00 Acetaminophen/ Hydrocodone Bitart ([place] (10/325)) 1 tab Q4H PRN PO PAIN Last administered on 10/09/17 12:51; Admin Dose 1 TAB; Start 10/06/17 at 15:30 Pantoprazole 40 mg 40 mg DAILY@06 IV Last administered on 10/09/17 05:42; Admin Dose 40 MG; Start 10/08/17 at 04:00 Potassium Chloride/Sodium Chloride (NS-KCl 20 Meq) 1,000 ml @ 100 mls/hr Q10H IV Last administered on 10/09/17 09:01; Admin Dose 100 MLS/HR; Start 10/08/17 at 09:00 АННА SALEH NP Oct 09, 2017 13:02
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
[2017-10-09 14:52] LABS: IRON < 10 ug/dl (35-150)
[2017-10-09 14:59] LABS: TOTAL IRON BINDING CAPACITY 282 ug/dl (241-421)
[2017-10-09 19:30] VITALS: BP 136/82; RESP 18
[2017-10-10 02:24] VITALS: BP 121/61; RESP 18
[2017-10-10 05:35] LABS: BASOPHILS % 0.1 % (0.0-2.0); EOSINOPHILS # 0.2 10^3/ul (0.0-0.5); EOSINOPHILS % 2.4 % (0.0-7.0); HEMATOCRIT 26.1 % (37.0-47.0); HEMOGLOBIN 8.2 g/dl (12.0-16.0); LYMPHOCYTES % 10.4 % (15.0-51.0); MEAN CORPUSCULAR HEMOGLOBIN 23.6 pg (29.0-33.0); MEAN CORPUSCULAR HGB CONC 31.4 g/dl (32.0-37.0); MEAN CORPUSCULAR VOLUME 75.2 fl (82.0-101.0); MEAN PLATELET VOLUME 9.7 fl (7.4-10.4); MONOCYTE # 0.7 10^3/ul (0.3-0.9); MONOCYTES % 7.7 % (0.0-11.0); NEUTROPHIL # 7.5 10^3/ul (1.6-7.5); NEUTROPHILS % 78.6 % (39.0-77.0); PLATELET COUNT 394 10^3/UL (140-415); RED BLOOD COUNT 3.47 10^6/ul (4.20-5.40); RED CELL DISTRIBUTION WIDTH 16.7 % (11.5-14.5); WHITE BLOOD COUNT 9.6 10^3/ul (4.8-10.8)
[2017-10-10] MEDS: PIPER-TAZO 3.375 GM IV (PMX) 50 ML IVPB SCH ×3 (05:50→18:27)
[2017-10-10] MEDS ORDERED: PANTOPRAZOLE (EC) 40 MG TAB PO SCH (06:00)
[2017-10-10 06:01] LABS: CALCIUM 7.8 mg/dl (8.4-10.2); CREATININE 0.57 mg/dl (0.44-1.00); PHOSPHORUS 4.1 mg/dl (2.5-4.9); POTASSIUM 3.9 mmol/L (3.5-5.1)
[2017-10-10 07:29] VITALS: BP 121/72; RESP 18
[2017-10-10] MEDS: HYDROCODONE/APAP (10/325) TAB PO PRN ×2 (08:30→20:53)
--- NOTE | 2017-10-10 08:57 | PN ---
Date/Time of Note Date/Time of Note DATE: 10/10/17 TIME: 08:54 Assessment/Plan VTE Prophylaxis VTE Prophylaxis Intervention: ambulation, SCD's Lines/Catheters [facility]from [facility] Saline Lock Urinary Cath still in place: No Assessment/Plan Chief Complaint/Hosp Course 1. Acute perforated appendicitis -No surgical intervention as per surgery. -Continue conservative management with antibiotics. -Being followed by infectious diseases. -Continue pain control. 2. Recent miscarriage. -Being followed by MANUAL MACHINIST. -Pelvic ultrasound negative for any products of conception. 3. Anemia. -Microcytic and hypochromic. -Iron deficiency. Start iron supplements. 4. Substance abuse. -Cessation advised. 5. Homeless status. -Obtain social work consult. 6. Fluids, electrolytes, and nutrition. -Regular diet. 7. DVT prophylaxis. -Ambulation. -SCDs. 8. Plan. -Continue antibiotics as per infectious diseases. -Start iron supplements. -To be discharged on oral antibiotics once cleared by consultants. Case discussed with Dr. Lucio. Problems: Subjective 24 Hr Interval Summary Free Text/Dictation Tolerating regular diet. Remains afebrile. Exam/Review of Systems Vital Signs Vitals Vital Signs Date Time Temp Pulse Resp B/P Pulse Ox O2 Delivery O2 Flow Rate FiO2 10/10/17 07:29 98.1 85 18 121/72 96 10/09/17 02:00 Room Air Intake and Output 10/09/17 10/09/17 10/10/17 15:00 23:00 07:00 Intake Total 550 ml 50 ml 1250 ml Output Total 1100 ml Balance 550 ml 50 ml 150 ml Exam General: Adequately build 37 year-old female lying in bed in no apparent distress. HEENT: Normocephalic, atraumatic. Eyes: Anicteric sclerae, conjunctivae clear. ENT: Nasal septum midline, oral mucosa moist. Neck supple, no JVD noticed. Respiratory: Bilaterally clear breath sounds. No use of accessory muscles of respiration. No adventitious breath sounds. Cardiovascular: S1, S2 heard. No murmurs or gallops. Abdomen: Soft and nondistended. Bowel sounds positive in all 4 quadrants. Diffuse tenderness. Genitourinary: Deferred. Extremities: No cyanosis, no clubbing, no edema. Peripheral pulses palpable. Neurologic: Cranial nerves II through XII grossly intact. The patient is awake, alert, and oriented. Skin: Normal skin turgor. No skin rashes. Results Result Diagram: 10/10/17 0426 10/10/17 0426 Results 24 hrs Laboratory Tests Test 10/09/17 13:49 10/10/17 04:26 Iron Level < 10 L Total Iron Binding Capacity 282 Percent Iron Saturation Ferritin 50.6 White Blood Count 9.6 Red Blood Count 3.47 L Hemoglobin 8.2 L Hematocrit 26.1 L Mean Corpuscular Volume 75.2 L Mean Corpuscular Hemoglobin 23.6 L Mean Corpuscular Hemoglobin Concent 31.4 L Red Cell Distribution Width 16.7 H Platelet Count 394 Mean Platelet Volume 9.7 Neutrophils % 78.6 H Lymphocytes % 10.4 L Monocytes % 7.7 Eosinophils % 2.4 Basophils % 0.1 Nucleated Red Blood Cells % 0.0 Neutrophils # 7.5 Lymphocytes # 1.0 Monocytes # 0.7 Eosinophils # 0.2 Basophils # 0.0 Nucleated Red Blood Cells # 0.0 Sodium Level 139 Potassium Level 3.9 Chloride Level 101 Carbon Dioxide Level 31 Anion Gap 11 Blood Urea Nitrogen 4 L Creatinine 0.57 Glucose Level 96 Calcium Level 7.8 L Phosphorus Level 4.1 Magnesium Level 2.0 Medications Medications Current Medications Piperacillin Sod/ Tazobactam Sod (Zosyn 3.375gm/ 50 ml (Pmx)) 50 ml @ 100 mls/ hr Q6 IVPB Last administered on 10/10/17 05:50; Admin Dose 100 MLS/HR; Start 10/06/17 at 00:30 Hydromorphone HCl (Dilaudid) 0.5 mg Q3H PRN IV PAIN Last administered on 19:58; Admin Dose 0.5 MG; Start 10/06/17 at 18:00 Acetaminophen/ Hydrocodone Bitart (Byron (10/325)) 1 tab Q4H PRN PO PAIN Last administered on 10/10/17 08:30; Admin Dose 1 TAB; Start 10/06/17 at 15:30 Pantoprazole (Protonix Tab) 40 mg DAILY@06 PO Last administered on 10/10/17 05 :49; Admin Dose 40 MG; Start 10/10/17 at 06:00 АННА SALEH NP Oct 10, 2017 08:57
--- NOTE | 2017-10-10 09:41 | QN ---
Documentation Comment Date of visit October 07, 2017 This patient is a 27 years old 8 para 4 spontaneous 3 2 with last menstrual period of 08/17/2017 who apparently had an incomplete and D&C on September 26 in [facility]. She came to emergency room due to discomfort over the lower abdomen with slight spotting. her beta-hCG originally was reported 75 about 12 hours later it dropped to 56 making the possibility of ectopic much less likely. Here is a small portion of description of the examination of this patient by Dr lunsford. the prior Laborist.: ( [id number].o (sab3 iab) presented to ER with c/o pelvic pain and vaginal bleeding for the last 2days. her LMP was 08/17 and found to be ,but she started having lower abdominal cramping pain with vaginal bleeding which led her to visit [facility] where she was told having miscarriage sent home on September 26/2017 presently no medical record available whether they confirmed IUP or not at that time . according to patient symptoms alleviated for few days and restarted pelvic pain and vaginal bleeding which is heavy. pain is aggravated with motion even radiated to upper abdomen.denies any other subjective symptoms). On examination today ;she is afebrile, comfortable ,her complains is slight lower abdominal pain On examination of the abdomen there is a slight tenderness of the right lower quadrant bowel sounds are normal ,no rebound no rigidity no CVA tenderness. Here is the ultrasound findings: Uterus: Position: Anteverted. Normal myometrial echogenicity. Normal appearance of the endometrium. Ovaries: Normal appearing right ovary. Normal appearing left ovary. No adnexal masses. Free fluid: Mild - moderate amount of complex fluid is present. Measurements: Endometrium (cm): 0.5 Uterus (cm): 9.6 x 5.4 x 6.7 Right ovary (cm): 2.2 x 1.4 x 1.7 Left ovary (cm): 2.1 x 1.2 x 1.4 IMPRESSION: Normal appearance of the uterus, endometrium, and both ovaries. Mild - moderate complex free fluid in the pelvis. With these finding the possibility of a ruptured ovarian cyst or ruptured corpus luteum can not be ruled out Plan : We will continue follow-up of this patient with internal medicine and possibly surgeon., JOE ESTRADA MD Oct 10, 2017 09:37 ; JOE ESTRADA MD Oct 10, 2017 09:37
[2017-10-10] MEDS: DOCUSATE SODIUM 100 MG CAP PO SCH ×2 (10:44→20:50)
[2017-10-10] MEDS: SOD FERRIC GLUC COMPLX 125 MG in SOD CHLORIDE 0.9% 100 ML IVPB SCH (10:45)
--- NOTE | 2017-10-10 11:52 | PN ---
Date/Time of Note Date/Time of Note DATE: 10/10/17 TIME: 11:45 Assessment/Plan Lines/Catheters IV Catheter Type (from Nrs): Saline Lock Hernandez in Place (from Nrs): No Assessment/Plan Chief Complaint/Hosp Course 37 year old female hospitalized for abdominal pain and pelvic pain. As per EMR and patient, she initially began to have some abdominal discomfort around 09/26 in which she went to an outside facility for care. She was diagnosed with a miscarriage and was discharged. Initially felt better after but then began to have worsening pelvic and abdominal pain. She then came to for evaluation and was admitted for work up and management. Was found to be febrile with significant leukocytosis. Ultrasound performed was normal but she continued to have pain so CT scan was ordered. CT demonstrated likely perforated appendicitis with phlegmon. Surgery called to evaluate. Problems: (1) Acute perforated appendicitis Comment: Acute perforated appendicitis with phlegmon. Non surgical management. Improving. Afebrile, HD stable, labs improving. On exam abdomen benign. significantly improved. mild discomfort but no tenderness, no rebound, no guarding. Has been afebrile with normal wbc for >48hrs now. Successful non surgical management. -okay to Discharge from surgical standpoint -MUST take oral Abx course as recommended by ID. patient is homeless and obtaining meds may be difficult. will need outreach and education social worker and resource management planner to help with meds for discharge and possibly a place to go. -will need to establish care with PCP -can follow up with me as an outpatient in 2-4 weeks. [phone] thank you for allowing me to participate in this patients care. Subjective 24 Hr Interval Summary patient seen and examined at bedside. no acute events. improving. pain improved. no n/v/f/c. tolerating diet. ambulatory. states that she feels much better today physically and mentally. Constitutional: ambulates, flatus, improved, urine output Feeding: advancing diet Exam/Review of Systems Vital Signs Vitals Vital Signs Date Time Temp Pulse Resp B/P Pulse Ox O2 Delivery O2 Flow Rate FiO2 10/10/17 07:29 98.1 85 18 121/72 96 10/09/17 02:00 Room Air Intake and Output 10/09/17 10/09/17 10/10/17 15:00 23:00 07:00 Intake Total 550 ml 50 ml 1250 ml Output Total 1100 ml Balance 550 ml 50 ml 150 ml Results Result Diagram: 10/10/17 0426 10/10/17 0426 MARILUZ THURSTON MD Oct 10, 2017 11:52
[2017-10-10 14:00] VITALS: BP 127/67; RESP 18
--- NOTE | 2017-10-10 19:33 | CONS ---
Date/Time of Note Date/Time of Note DATE: 10/10/17 TIME: 19:31 Assessment/Plan Assessment/Plan Chief Complaint/Hosp Course SUBJECTIVE: No acute changes. Patient is alert, feels better. Looks comfortable. No fevers. MICROBIOLOGY: Genital culture grew Strep group B. ANTIMICROBIALS: The patient is on Zosyn. PHYSICAL EXAMINATION: GENERAL: Well-developed, middle-aged woman who is in no distress. HEENT: Atraumatic, normocephalic. Sclerae anicteric. Buccal mucosa pink. NECK: Supple. CHEST: Symmetrical. Breath sounds clear. HEART: S1, S2. ABDOMEN: Soft with some tenderness on palpation. EXTREMITIES: Without cyanosis. ASSESSMENT: 1. Acute perforated appendicitis with phlegmon, surgery on case, continue medical management. 2. History of recent miscarriage. 3. Anemia. 4. History of homelessness and substance abuse. PLAN: The patient remains stable. Continue present care, antibiotics. Anticipate discharge on oral Flagyl and Levaquin to complete 2 weeks abx when she is medically clear. staff Problems: Consultation Date/Type/Reason Admit Date/Time Oct 05, 2017 at 22:32 Initial Consult Date 10/08/17 Type of Consultation: ID Referring Provider: ANDREAS ALVARADO MD Exam/Review of Systems Vital Signs Vitals Vital Signs Date Time Temp Pulse Resp B/P Pulse Ox O2 Delivery O2 Flow Rate FiO2 10/10/17 14:00 99.0 86 18 127/67 97 10/09/17 02:00 Room Air Intake and Output 10/09/17 10/09/17 10/10/17 15:00 23:00 07:00 Intake Total 550 ml 50 ml 1250 ml Output Total 1100 ml Balance 550 ml 50 ml 150 ml Results Result Diagram: 10/10/17 0426 10/10/17 0426 Results 24 hrs Laboratory Tests Test 10/10/17 04:26 White Blood Count 9.6 Red Blood Count 3.47 L Hemoglobin 8.2 L Hematocrit 26.1 L Mean Corpuscular Volume 75.2 L Mean Corpuscular Hemoglobin 23.6 L Mean Corpuscular Hemoglobin Concent 31.4 L Red Cell Distribution Width 16.7 H Platelet Count 394 Mean Platelet Volume 9.7 Neutrophils % 78.6 H Lymphocytes % 10.4 L Monocytes % 7.7 Eosinophils % 2.4 Basophils % 0.1 Nucleated Red Blood Cells % 0.0 Neutrophils # 7.5 Lymphocytes # 1.0 Monocytes # 0.7 Eosinophils # 0.2 Basophils # 0.0 Nucleated Red Blood Cells # 0.0 Sodium Level 139 Potassium Level 3.9 Chloride Level 101 Carbon Dioxide Level 31 Anion Gap 11 Blood Urea Nitrogen 4 L Creatinine 0.57 Glucose Level 96 Calcium Level 7.8 L Phosphorus Level 4.1 Magnesium Level 2.0 Medications Medications Current Medications Piperacillin Sod/ Tazobactam Sod (Zosyn 3.375gm/ 50 ml (Pmx)) 50 ml @ 100 mls/ hr Q6 IVPB Last administered on 10/10/17 18:27; Admin Dose 100 MLS/HR; Start 10/06/17 at 00:30 Hydromorphone HCl (Dilaudid) 0.5 mg Q3H PRN IV PAIN Last administered on 19:58; Admin Dose 0.5 MG; Start 10/06/17 at 18:00 Acetaminophen/ Hydrocodone Bitart 1 tab 1 tab Q4H PRN PO PAIN Last administered on 10/10/17 08:30; Admin Dose 1 TAB; Start 10/06/17 at 15:30 Ferric Sodium Gluconate Complex/ Sodium Chloride (Ferrlecit/NS) 110 ml @ 100 mls/hr Q24H IVPB Last administered on 10/10/17 10:45; Admin Dose 100 MLS/HR; Start 10/10/17 at 09:00; Stop 10/12/17 at 10:05 Docusate Sodium (Colace) 100 mg BID PO Last administered on 10/10/17 10:44; Admin Dose 100 MG; Start 10/10/17 at 09:30 PELNO LEPE NP Oct 10, 2017 19:33
[2017-10-10 20:11] VITALS: BP 121/61; RESP 16
[2017-10-11] MEDS: PIPER-TAZO 3.375 GM IV (PMX) 50 ML IVPB SCH ×4 (00:05→18:38)
[2017-10-11] MEDS: HYDROCODONE/APAP (10/325) TAB PO PRN ×3 (01:16→19:58)
[2017-10-11 01:45] VITALS: BP 114/67; RESP 16
[2017-10-11 05:32] LABS: BASOPHILS % 0.2 % (0.0-2.0); EOSINOPHILS # 0.2 10^3/ul (0.0-0.5); EOSINOPHILS % 2.3 % (0.0-7.0); HEMATOCRIT 27.1 % (37.0-47.0); HEMOGLOBIN 8.6 g/dl (12.0-16.0); LYMPHOCYTES # 1.5 10^3/ul (0.8-2.9); LYMPHOCYTES % 16.7 % (15.0-51.0); MEAN CORPUSCULAR HEMOGLOBIN 23.7 pg (29.0-33.0); MEAN CORPUSCULAR HGB CONC 31.7 g/dl (32.0-37.0); MEAN CORPUSCULAR VOLUME 74.7 fl (82.0-101.0); MEAN PLATELET VOLUME 9.4 fl (7.4-10.4); MONOCYTE # 0.6 10^3/ul (0.3-0.9); MONOCYTES % 6.5 % (0.0-11.0); NEUTROPHIL # 6.4 10^3/ul (1.6-7.5); NEUTROPHILS % 71.8 % (39.0-77.0); NUCLEATED RED BLOOD CELLS% 0.2 /100WBC (0.0-0.0); PLATELET COUNT 485 10^3/UL (140-415); RED BLOOD COUNT 3.63 10^6/ul (4.20-5.40); RED CELL DISTRIBUTION WIDTH 16.3 % (11.5-14.5); WHITE BLOOD COUNT 8.9 10^3/ul (4.8-10.8)
[2017-10-11 05:36] LABS: POSITIVE DIFF @See below
[2017-10-11 05:59] LABS: PHOSPHORUS 4.8 mg/dl (2.5-4.9)
[2017-10-11 06:06] LABS: CREATININE 0.66 mg/dl (0.44-1.00); POTASSIUM 4.4 mmol/L (3.5-5.1)
--- NOTE | 2017-10-11 07:18 | PN ---
DATE: 10/09/2017 INFECTIOUS DISEASE PROGRESS NOTE SUBJECTIVE: No acute changes. Patient is alert, feels better. Looks comfortable. No fevers. LABORATORY: WBC 9, neutrophils 84.3. BUN 6, creatinine 0.53. MICROBIOLOGY: Genital culture grew Strep group B. ANTIMICROBIALS: The patient is on Zosyn. PHYSICAL EXAMINATION: GENERAL: Well-developed, middle-aged woman who is in no distress. HEENT: Atraumatic, normocephalic. Sclerae anicteric. Buccal mucosa pink. NECK: Supple. CHEST: Symmetrical. Breath sounds clear. HEART: S1, S2. ABDOMEN: Soft with some tenderness on palpation. EXTREMITIES: Without cyanosis. ASSESSMENT: 1. Acute perforated appendicitis with phlegmon, surgery on case. Patient is going to have nonsurgi humberto management. 2. History of recent miscarriage. 3. Anemia. 4. History of homelessness and substance abuse. PLAN: The patient remains stable. Continue present care, antibiotics. Follow surgical recommendat ions. Anticipate discharge on oral Flagyl and Levaquin when she is medically clear. Dictated By: PELON LEPE SPINNING OPERATOR for JORGE ZIEGLER MD NI/NTS Conf#: [id number] DID#: [id number] CC: REINALDO RUELAS MD;*EndCC*
[2017-10-11 08:17] VITALS: BP 122/56; RESP 19
[2017-10-11] MEDS: DOCUSATE SODIUM 100 MG CAP PO SCH ×2 (09:45→19:57)
[2017-10-11] MEDS: SOD FERRIC GLUC COMPLX 125 MG in SOD CHLORIDE 0.9% 100 ML IVPB SCH (09:45)
--- NOTE | 2017-10-11 11:44 | PN ---
Date/Time of Note Date/Time of Note DATE: 10/11/17 TIME: 11:33 Assessment/Plan VTE Prophylaxis VTE Prophylaxis Intervention: ambulation, SCD's ( ) Lines/Catheters IV [facility]from [facility] Saline Lock Urinary Cath still in place: No Assessment/Plan Chief Complaint/Hosp Course Assessment and plan 1. Acute perforated appendicitis. Patient was seen by surgeon. The plan for surgery at this time. Continue with antibiotics. Continue with analgesics as needed. 2. Recent miscarriage. Patient being followed by BUSINESS ANALYTICS SPECIALIST. Pelvic ultrasound was negative for any products of conception and showed normal appearance of the uterus, endometrium, and both ovaries. There was seen moderate complex free fluid in the pelvis.. Continue with BUSINESS ANALYTICS SPECIALIST recommendations. Continue the antibiotics. 3. Anemia. Noted with iron deficiency. Continue iron supplement 4. History of substance abuse. Cessation was advised. 5. Normal status. Continue with social sciences department chair recommendations. DVT prophylaxis: SCDs and ambulation Disposition plan: Continue with antibiotics. Continued on iron supplements. Discharge planning. Will sign off and will be available for reconsultation as needed Discussed plan of care with Dr. Turcios Problems: Subjective 24 Hr Interval Summary Free Text/Dictation still reports having pain in abdomen. anxious and having inappropriate aggressive attitude towards me during visit. Exam/Review of Systems Vital Signs Vitals Vital Signs Date Time Temp Pulse Resp B/P Pulse Ox O2 Delivery O2 Flow Rate FiO2 10/11/17 08:17 98.2 85 19 122/56 98 10/09/17 02:00 Room Air Intake and Output 10/10/17 10/10/17 10/11/17 15:00 23:00 07:00 Intake Total 160 ml 950 ml 700 ml Output Total 1100 ml 900 ml Balance 160 ml -150 ml -200 ml Exam declined physical exam Results Result Diagram: 10/11/17 0431 10/11/17 0431 Results 24 hrs Laboratory Tests Test 10/11/17 04:31 White Blood Count 8.9 Red Blood Count 3.63 L Hemoglobin 8.6 L Hematocrit 27.1 L Mean Corpuscular Volume 74.7 L Mean Corpuscular Hemoglobin 23.7 L Mean Corpuscular Hemoglobin Concent 31.7 L Red Cell Distribution Width 16.3 H Platelet Count 485 #H Mean Platelet Volume 9.4 Neutrophils % 71.8 Lymphocytes % 16.7 Monocytes % 6.5 Eosinophils % 2.3 Basophils % 0.2 Nucleated Red Blood Cells % 0.2 H Neutrophils # 6.4 Lymphocytes # 1.5 Monocytes # 0.6 Eosinophils # 0.2 Basophils # 0.0 Nucleated Red Blood Cells # 0.0 Sodium Level 140 Potassium Level 4.4 Chloride Level 101 Carbon Dioxide Level 31 Anion Gap 12 Blood Urea Nitrogen 5 L Creatinine 0.66 Glucose Level 107 Calcium Level 9.0 Phosphorus Level 4.8 Magnesium Level 2.0 Medications Medications Current Medications Piperacillin Sod/ Tazobactam Sod (Zosyn 3.375gm/ 50 ml (Pmx)) 50 ml @ 100 mls/ hr Q6 IVPB Last administered on 10/11/17 05:42; Admin Dose 100 MLS/HR; Start 10/06/17 at 00:30 Hydromorphone HCl (Dilaudid) 0.5 mg Q3H PRN IV PAIN Last administered on 19:58; Admin Dose 0.5 MG; Start 10/06/17 at 18:00 Acetaminophen/ Hydrocodone Bitart 1 tab 1 tab Q4H PRN PO PAIN Last administered on 10/11/17 05:42; Admin Dose 1 TAB; Start 10/06/17 at 15:30 Ferric Sodium Gluconate Complex/ Sodium Chloride (Ferrlecit/NS) 110 ml @ 100 mls/hr Q24H IVPB Last administered on 10/11/17 09:45; Admin Dose 100 MLS/HR; Start 10/10/17 at 09:00; Stop 10/12/17 at 10:05 Docusate Sodium (Colace) 100 mg BID PO Last administered on 10/11/17 09:45; Admin Dose 100 MG; Start 10/10/17 at 09:30 KATHERINE TEJADA Oct 11, 2017 11:43
[2017-10-11] MEDS ORDERED: ALPRAZOLAM 0.5 MG TAB PO PRN (12:00)
[2017-10-11] MEDS: MAGNESIUM HYDROXIDE 30ML CUP PO PRN (13:37)
--- NOTE | 2017-10-11 14:06 | CONS ---
Date/Time of Note Date/Time of Note DATE: 10/11/17 TIME: 14:05 Assessment/Plan Assessment/Plan Chief Complaint/Hosp Course SUBJECTIVE: No acute changes. Patient is alert, playing with the phone. Looks comfortable. No fevers. MICROBIOLOGY: Genital culture grew Strep group B. ANTIMICROBIALS: The patient is on Zosyn. PHYSICAL EXAMINATION: GENERAL: Well-developed, middle-aged woman who is in no distress. HEENT: Atraumatic, normocephalic. Sclerae anicteric. Buccal mucosa pink. NECK: Supple. CHEST: Symmetrical. Breath sounds clear. HEART: S1, S2. ABDOMEN: Soft with some tenderness on palpation. EXTREMITIES: Without cyanosis. ASSESSMENT: 1. Acute perforated appendicitis with phlegmon, surgery on case, continue medical management. 2. History of recent miscarriage. 3. Anemia. 4. History of homelessness and substance abuse. PLAN: The patient remains stable. Continue present care. Anticipate discharge on oral Flagyl and Levaquin to complete 2 weeks abx. dw staff Problems: Consultation Date/Type/Reason Admit Date/Time Oct 05, 2017 at 22:32 Initial Consult Date 10/08/17 Type of Consultation: ID Referring Provider: ANDREAS ALVARADO MD Exam/Review of Systems Vital Signs Vitals Vital Signs Date Time Temp Pulse Resp B/P Pulse Ox O2 Delivery O2 Flow Rate FiO2 10/11/17 08:17 98.2 85 19 122/56 98 10/09/17 02:00 Room Air Intake and Output 10/10/17 10/10/17 10/11/17 15:00 23:00 07:00 Intake Total 160 ml 950 ml 700 ml Output Total 1100 ml 900 ml Balance 160 ml -150 ml -200 ml Results Result Diagram: 10/11/17 0431 10/11/17 0431 Results 24 hrs Laboratory Tests Test 10/11/17 04:31 White Blood Count 8.9 Red Blood Count 3.63 L Hemoglobin 8.6 L Hematocrit 27.1 L Mean Corpuscular Volume 74.7 L Mean Corpuscular Hemoglobin 23.7 L Mean Corpuscular Hemoglobin Concent 31.7 L Red Cell Distribution Width 16.3 H Platelet Count 485 #H Mean Platelet Volume 9.4 Neutrophils % 71.8 Lymphocytes % 16.7 Monocytes % 6.5 Eosinophils % 2.3 Basophils % 0.2 Nucleated Red Blood Cells % 0.2 H Neutrophils # 6.4 Lymphocytes # 1.5 Monocytes # 0.6 Eosinophils # 0.2 Basophils # 0.0 Nucleated Red Blood Cells # 0.0 Sodium Level 140 Potassium Level 4.4 Chloride Level 101 Carbon Dioxide Level 31 Anion Gap 12 Blood Urea Nitrogen 5 L Creatinine 0.66 Glucose Level 107 Calcium Level 9.0 Phosphorus Level 4.8 Magnesium Level 2.0 Medications Medications Current Medications Piperacillin Sod/ Tazobactam Sod (Zosyn 3.375gm/ 50 ml (Pmx)) 50 ml @ 100 mls/ hr Q6 IVPB Last administered on 10/11/17 13:36; Admin Dose 100 MLS/HR; Start 10/06/17 at 00:30 Hydromorphone HCl (Dilaudid) 0.5 mg Q3H PRN IV PAIN Last administered on 19:58; Admin Dose 0.5 MG; Start 10/06/17 at 18:00 Acetaminophen/ Hydrocodone Bitart 1 tab 1 tab Q4H PRN PO PAIN Last administered on 10/11/17 05:42; Admin Dose 1 TAB; Start 10/06/17 at 15:30 Ferric Sodium Gluconate Complex/ Sodium Chloride (Ferrlecit/NS) 110 ml @ 100 mls/hr Q24H IVPB Last administered on 10/11/17 09:45; Admin Dose 100 MLS/HR; Start 10/10/17 at 09:00; Stop 10/12/17 at 10:05 Docusate Sodium (Colace) 100 mg BID PO Last administered on 10/11/17 09:45; Admin Dose 100 MG; Start 10/10/17 at 09:30 Lactulose (Enulose) 20 gm Q6H PRN PO CONSTIPATION; Start 10/11/17 at 12:00 Magnesium Hydroxide (Milk Of Mag) 30 ml BID PRN PO CONSTIPATION Last administered on 10/11/17 13:37; Admin Dose 30 ML; Start 10/11/17 at 12:00 Alprazolam (Xanax) 0.5 mg Q8H PRN PO ANXIETY; Start 10/11/17 at 12:00 PELON LEPE NP Oct 11, 2017 14:06
[2017-10-11 15:30] VITALS: BP 119/51; RESP 19
--- NOTE | 2017-10-11 16:00 | PN ---
Date/Time of Note Date/Time of Note DATE: 10/11/17 TIME: 15:45 Assessment/Plan Lines/Catheters IV Catheter Type (from [facility]): Saline Lock Hernandez in Place (from [facility]): No Assessment/Plan Chief Complaint/Hosp Course Acute perforated appendicitis with phlegmon Problems: (1) Acute perforated appendicitis Assessment/Plan Non operative management successful. She has been afebrile, HD stable with normal labs for days now. her exam is benign. -okay to d/c from surgical standpoint with oral abx. -can follow up with me in 2-4 weeks at which time we can discuss interval appendectomy. OF NOTE, I NOTED FOR THE SECOND TIME THAT PATIENT WAS ATTEMPTING TO RECORD CONVERSATIONS WITHOUT MY CONSENT. PATIENT ACTS LIKE SHE IS HOLDING HER PHONE UNDER THE BLANKET BUT INDEED IS RECORDING CONVERSATIONS. I CONFIRMED THIS BY ASKING HER WHAT TIME IT IS. SHE WAS INITIALLY RELUCTANT TO TELL ME BUT WHEN SHE DID I WAS ABLE TO NOTICE HER PHONE ON RECORD MODE. I EXPRESSED TO HER AGAIN THAT I DO NOT CONSENT TO HER RECORDING. IT IS MY POLICY, AND IF I AM CORRECT HOSPITAL POLICY, THAT WITHOUT PRIOR WRITTEN CONSENT I CANNOT BE PHOTOGRAPHED, FILMED, OR RECORDED. I AGAIN INFORMED PATIENT OF THIS. Furthermore, with above information, I feel that patient has be malingering. Her clinical course and exam have not always been consistent with what she states. She asks for assistance and when given she decline it. She states that she is homeless and does not want to leave the hospital. She states she wants to stay another "week" to figure things out even though she understands she is clinically ready for discharge. She states she wants support but when given she declines it. please refer to case planner/social note for details. Subjective 24 Hr Interval Summary patient seen and examined at bedside. doing well. states she feels better. no n/v/f/c. tolerating diet. Constitutional: improved Exam/Review of Systems Vital Signs Vitals Vital Signs Date Time Temp Pulse Resp B/P Pulse Ox O2 Delivery O2 Flow Rate FiO2 10/11/17 08:17 98.2 85 19 122/56 98 10/09/17 02:00 Room Air Intake and Output 10/10/17 10/10/17 10/11/17 15:00 23:00 07:00 Intake Total 160 ml 950 ml 700 ml Output Total 1100 ml 900 ml Balance 160 ml -150 ml -200 ml Exam Constitutional: alert, oriented Psych: no complaints Head: atraumatic ENMT: nl external ears & nose Respiratory: normal air movement Gastrointestinal: nl liver, spleen, non-tender, soft Results Result Diagram: 10/11/17 0431 10/11/17 0431 MARILUZ THURSTON MD Oct 11, 2017 15:59
[2017-10-11] MEDS: LACTULOSE 30ML CUP PO PRN (19:58)
[2017-10-11 20:05] VITALS: BP 116/77; RESP 18
[2017-10-12] MEDS: PIPER-TAZO 3.375 GM IV (PMX) 50 ML IVPB SCH ×4 (00:01→18:32)
[2017-10-12 02:33] VITALS: BP 122/62; RESP 18
[2017-10-12] MEDS: LACTULOSE 30ML CUP PO PRN ×2 (06:18→19:58)
[2017-10-12] MEDS: HYDROCODONE/APAP (10/325) TAB PO PRN (06:23)
[2017-10-12 08:06] VITALS: BP 117/69; RESP 18
[2017-10-12] MEDS: SOD FERRIC GLUC COMPLX 125 MG in SOD CHLORIDE 0.9% 100 ML IVPB SCH (09:32)
[2017-10-12] MEDS: DOCUSATE SODIUM 100 MG CAP PO SCH ×2 (09:33→19:58)
--- NOTE | 2017-10-12 12:43 | CONS ---
Date/Time of Note Date/Time of Note DATE: 10/12/17 TIME: 12:42 Assessment/Plan Assessment/Plan Chief Complaint/Hosp Course SUBJECTIVE: No acute changes. Looks comfortable. No fevers. MICROBIOLOGY: Genital culture grew Strep group B. ANTIMICROBIALS: Zosyn. PHYSICAL EXAMINATION: GENERAL: Well-developed, middle-aged woman who is in no distress. HEENT: Atraumatic, normocephalic. Sclerae anicteric. Buccal mucosa pink. NECK: Supple. CHEST: Symmetrical. Breath sounds clear. HEART: S1, S2. ABDOMEN: Soft with some tenderness on palpation. EXTREMITIES: Without cyanosis. ASSESSMENT: 1. Acute perforated appendicitis with phlegmon, surgery on case, continue medical management. 2. History of recent miscarriage. 3. Anemia. 4. History of homelessness and substance abuse. PLAN: The patient remains stable. Continue present care. Anticipate discharge on oral Flagyl and Levaquin to complete 2 weeks abx. Dw staff Problems: Consultation Date/Type/Reason Admit Date/Time Oct 05, 2017 at 22:32 Initial Consult Date 10/08/17 Type of Consultation: ID Referring Provider: ANDREAS ALVARADO MD Exam/Review of Systems Vital Signs Vitals Vital Signs Date Time Temp Pulse Resp B/P Pulse Ox O2 Delivery O2 Flow Rate FiO2 10/12/17 08:06 98.8 68 18 117/69 96 10/09/17 02:00 Room Air Intake and Output 10/11/17 10/11/17 10/12/17 14:59 22:59 06:59 Intake Total 160 ml 750 ml 530 ml Balance 160 ml 750 ml 530 ml Results Result Diagram: 10/11/17 0431 10/11/17 0431 Medications Medications Current Medications Piperacillin Sod/ Tazobactam Sod (Zosyn 3.375gm/ 50 ml (Pmx)) 50 ml @ 100 mls/ hr Q6 IVPB Last administered on 10/12/17 12:25; Admin Dose 100 MLS/HR; Start 10/06/17 at 00:30 Hydromorphone HCl (Dilaudid) 0.5 mg Q3H PRN IV PAIN Last administered on 19:58; Admin Dose 0.5 MG; Start 10/06/17 at 18:00 Acetaminophen/ Hydrocodone Bitart ([place] (10/325)) 1 tab Q4H PRN PO PAIN Last administered on 10/12/17 06:23; Admin Dose 1 TAB; Start 10/06/17 at 15:30 Docusate Sodium (Colace) 100 mg BID PO Last administered on 10/12/17 09:33; Admin Dose 100 MG; Start 10/10/17 at 09:30 Lactulose (Enulose) 20 gm Q6H PRN PO CONSTIPATION Last administered on 06:18; Admin Dose 20 GM; Start 10/11/17 at 12:00 Magnesium Hydroxide (Milk Of Mag) 30 ml BID PRN PO CONSTIPATION Last administered on 10/11/17 13:37; Admin Dose 30 ML; Start 10/11/17 at 12:00 Alprazolam (Xanax) 0.5 mg Q8H PRN PO ANXIETY; Start 10/11/17 at 12:00 PELON LEPE NP Oct 12, 2017 12:43
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
[2017-10-12] MEDS: MAGNESIUM HYDROXIDE 30ML CUP PO PRN (15:49)
[2017-10-12 19:42] VITALS: BP 107/56; RESP 18
[2017-10-12] MEDS ORDERED: BISACODYL 10 MG SUPP PR PRN (20:30)
--- NOTE | 2017-10-13 01:21 | QN ---
Documentation Comment called from med-surg regarding this patient who now is ready to go place which is available patient already have prescription levaquin and flagyl according to nurse who requested to allow patient to go home since patient arranged [facility] to go. BEATA RUELAS MD Oct 13, 2017 01:21
== END 2017-10-13 00:10 | disposition home or self-care (01) | DRG 372 ==
LOC: E/R 18:46 → MS1 22:32
PROVIDERS: ADMIT Internal Medicine; ATTEND Internal Medicine
PROC: 3E0234Z Introduction of Serum, Toxoid and Vaccine into Muscle, Percutaneous Approach (ICD-10-PCS; principal; 2017-10-06)
DX: K35.2 Acute appendicitis with generalized peritonitis (principal); N39.0 Urinary tract infection, site not specified; F17.210 Nicotine dependence, cigarettes, uncomplicated; D64.9 Anemia, unspecified; D50.9 Iron deficiency anemia, unspecified; Z59.0 Homelessness; F19.10 Other psychoactive substance abuse, uncomplicated; Z23 Encounter for immunization
CPT/HCPCS: 36415; 71010; 74000; 74176; 76830; 76856; 80048; 80053; 80306; 80307; 81001; 82728; 83540; 83605; 83690; 83735; 84100; 84702; 84703; 85025; 85610; 85651; 85730; 86900; 86901; 87040; 87081; 87086; 87591; 90686; 96365; 96366; 96368; 96375; C9113; J1170; J1885; J2060; J2405; J2543; J2916; J3480; J7030; J7050

== ENCOUNTER 2017-11-27 20:29 | Inpatient (IN) | END 2017-12-02 06:50 | disposition left against medical advice (07) | DRG 871 ==

== ENCOUNTER 2017-12-03 21:31 | Inpatient (IN) | END 2017-12-15 12:45 | disposition home or self-care (01) | DRG 853 ==